=== PATIENT | female | born 1970 | race Caucasian/White ===

== ENCOUNTER 2021-02-13 22:43 | Observation (INO) | payer OTHER, BC, SELFPAY ==
--- NOTE | ~2021-02-13 | CT_ITS ---
EXAMINATION: CT brain wo con EXAM DATE: 02/14/2021 00:48 INDICATION: Syncope. TECHNIQUE: Spiral CT of the head was performed without contrast. Axial, coronal and sagittal images were reviewed. The dose-length product (DLP) for this examination was 605.33 mGy-cm. The exposure w as tailored according to patient size, and iterative reconstruction (ASIR) was used as additional dos e reduction technique. There is no prior study for comparison. FINDINGS: There is no acute intraparenchymal hemorrhage. No evidence of intraparenchymal brain mass lesion. No evidence of acute infarction. There is no mass effect or midline shift. The ventricles are normal in size. There are no extra-axial collections. There are no acute calvarial fractures. T he orbits are unremarkable. Soft tissue is unremarkable. The visualized sinuses and mastoid air boo ls are well aerated. IMPRESSION: 1. Unremarkable head CT examination. Reviewed, dictated and finalized at location A.
--- NOTE | ~2021-02-13 | XR_ITS ---
XR chest 1V portable DATE: 02/13/2021 23:05 INDICATION: Syncope TECHNIQUE: Portable upright AP chest on 02/13/2021 at 2309 hours COMPARISON: 09/05/2020 PA chest FINDINGS: Normal heart size. No hilar or mediastinal enlargement. No pulmonary infiltrate or consolid ation, pleural effusion or pulmonary vascular congestion or pneumothorax. IMPRESSION: No active cardiopulmonary disease Reviewed, dictated and finalized at location A.
[2021-02-13 22:43] VITALS: BP 88/72; PULSE 65; PULSE 72; RESP 16; TEMP 36.8; O2SAT 95
--- NOTE | 2021-02-13 22:45 | ECG_ITS ---
Measurements Intervals [place] Rate: 81 P: 31 TX: 145 QRS: 83 QRSD: 88 T: 62 QT: 370 QTc: 430 Interpretive Statements SINUS RHYTHM INCOMPLETE RIGHT BUNDLE BRANCH BLOCK BORDERLINE T WAVE ABNORMALITY- ANTERIOR LEADS BORDERLINE ECG Electronically Signed On 02-14-2021 8:09:40 CDT by Zurdo New D.O.
[2021-02-13] MEDS: LACTATED RINGERS 1,000 ML 999 ML IV CONT ×2 (23:10→23:45)
[2021-02-13 23:21] LABS: Glucose Point of Care 105 (65-105)
[2021-02-13 23:50] LABS: Basophils Absolute Auto 0.07 K/mm3 (0.00-0.10); Eosinophils Absolute Auto 0.23 K/mm3 (0.02-0.50); Eosinophils Percent Auto 3.4 % (1.0-6.0); Hematocrit 38.6 % (35.0-49.0); Immature Granulocyte Absolute 0.02 K/mm3 (0.00-0.00); Immature Granulocyte Percent A 0.3 % (0.0-0.0); Lymphocytes Absolute Auto 2.21 K/mm3 (1.10-4.50); Lymphocytes Percent Auto 32.5 % (18.0-42.0); Mean Corpuscular HGB Conc 33.7 g/dL (32.0-36.0); Mean Corpuscular Hemoglobin 27.8 pg (27.0-31.0); Mean Corpuscular Volume 82.7 fL (78.0-102.0); Mean Platelet Volume 10.4 fl (9.2-11.8); Monocytes Absolute Auto 0.64 K/mm3 (0.10-0.90); Monocytes Percent Auto 9.4 % (2.0-11.0); Neutrophils Absolute Auto 3.6 K/mm3 (1.7-7.2); Neutrophils Percent Auto 53.4 % (50.0-70.0); Platelet Count Result 235 K/mm3 (150-420); Red Blood Count 4.67 M/mm3 (4.20-5.40); Red Cell Distribution Width 12.2 % (11.6-14.4); White Blood Count 6.8 K/mm3 (4.8-10.8)
[2021-02-14] VITALS (12 sets, daily range): BP systolic 94–110; BP diastolic 42–67; PULSE 65–82; RESP 18–20; TEMP 35.8–36.9; O2SAT 94–98; BMI 32.8
[2021-02-14 00:14] LABS: BNP < 5.0 pg/mL (0-100)
[2021-02-14 00:17] LABS: Alanine Aminotransferase 22 U/L (14-59); Albumin Level 3.1 g/dL (3.4-5.0); Alkaline Phosphatase 58 U/L (46-116); Anion Gap 7 mmol/L (8-16); Aspartate Amino Transferase 13 U/L (15-37); Bilirubin,Total 0.4 mg/dL (0.00-1.00); Blood Urea Nitrogen 15 mg/dL (7-18); Calcium 9.2 mg/dL (8.5-10.1); Carbon Dioxide 30 mmol/L (21-32); Chloride 101 mmol/L (98-108); Estimated CRCL calculation 52 ml/min; Estimated Glomerular Filt Rate 54; Glucose 107 mg/dL (70-99); Osmolality Calculated 286 mOsm/kg (285-295); Potassium 3.3 mmol/L (3.5-5.1); Sodium 138 mmol/L (136-145); Total Protein 6.2 g/dL (6.4-8.2)
[2021-02-14 00:18] LABS: Thyroid Stimulating Hormone 3.56 uIU/mL (0.36-3.74); Troponin I < 4.0 ng/L (0.00-60.4)
[2021-02-14 00:19] LABS: Ethanol 4 mg/dL (0-6)
[2021-02-14] MEDS: POTASSIUM BICARBONATE 25 MEQ TABEF 50 MEQ PO (00:23)
[2021-02-14] MEDS: SODIUM CHLORIDE 0.9% IV 1,000 ML 150 ML IV CONT ×3 (00:23→13:40)
--- NOTE | 2021-02-14 00:34 | ED.SYNCOPE ---
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 Just after standing she had a brief syncopal episode, falling to the floor, but apparently without injury. She appears somewhat weak now. She reports she has had frequent presyncopal episodes when standing up lately. MD complaint: loss of consciousness and felt faint -: second(s) Prodromal symptoms: lightheaded Witnessed: No Context: standing up Injuries sustained associated with event: none Current symptoms: none History: other (previous presyncopal episodes.) Related Data Home Medications Medication Instructions Recorded Confirmed atorvastatin 20 mg PO DAILY 02/13/21 02/13/21 doxycycline monohydrate 100 mg PO DAILY 02/13/21 02/13/21 lamotrigine 100 mg PO DAILY 02/13/21 02/13/21 losartan-hydrochlorothiazide 1 tablet PO DAILY 02/13/21 02/13/21 metoprolol succinate 25 mg PO DAILY 02/13/21 02/13/21 omeprazole 40 mg PO DAILY 02/13/21 02/13/21 oxybutynin chloride 5 mg PO DAILY 02/13/21 02/13/21 potassium chloride 10 meq PO DAILY 02/13/21 02/13/21 quetiapine 100 mg PO DAILY 02/13/21 02/13/21 spironolactone 50 mg PO DAILY 02/13/21 02/13/21 trazodone 100 mg PO HS 02/13/21 02/13/21 venlafaxine 150 mg PO DAILY 02/13/21 02/13/21 Allergies Allergy/AdvReac Type Severity Reaction Status Date / Time No Known Allergies Allergy Verified 09/05/20 15:30 Review of Systems Constitutional: Constitutional: Reports no additional constitutional complaints Eyes: Eyes: Reports no additional eye complaints ENT: Reports system reviewed and no additional complaints, except as documented Comments: No vertigo Cardiovascular: Cardiovascular: Reports no additional cardiovascular complaints Respiratory: Respiratory: Reports no additional respiratory complaints Gastrointestinal: Gastrointestinal: Reports no additional gastrointestinal complaints Genitourinary: Genitourinary: Reports no additional female genitourinary complaints Musculoskeletal: Musculoskeletal: Reports no additional musculoskeletal complaints Integumentary/Breasts: Skin/Breast: Reports system reviewed and no additional complaints, except as docu Neurologic: Reports system reviewed and no additional complaints, except as documented Psychiatric: Psychiatric: Reports no additional psychiatric complaints Endocrine: Endocrine: Reports no additional endocrine complaints Hematologic/Lymphatic: Hematologic/Lymphatic: Reports no additional hematologic/lymphatic complaints Allergic/Immunologic: Allergic/Immunologic: Reports no additional allergic/immunologic complaints [facility] Past Medical History Medical History (Updated 02/14/21 @ 05:53 by Kvng Carlos MD) Depression GERD (gastroesophageal reflux disease) Hypertension Surgical History Surgical History (Updated 02/14/21 @ 05:56 by Kvng Carlos MD) H/O hemorrhoidectomy History of carpal tunnel surgery History of ear surgery History of tonsillectomy Family History Family History (Updated 02/14/21 @ 05:56 by Kvng Carlos MD) Mother Cerebrovascular accident Hypertension Hyperlipidemia Social History Social History (Updated 02/14/21 @ 05:58 by Kvng Carlos MD) Smoking status: Current every day smoker Tobacco type: cigarettes Alcohol use details: rare, minimal use Substance use type: does not use Gender identity (if verbalized by the patient): Female Spiritual care concerns: No Exam Const: General: no acute distress Orientation/consciousness: patient oriented x3 HENMT: Head: normal to inspection Ears: external ears normal and TM's normal bilaterally General nose exam: Normal external nose present and Normal nares present Face and sinus: normal facial exam Mouth: Yes Normal oral and palatal mucosa present Throat: posterior orop
[2021-02-14 00:57] LABS: Add Urine Microscopic? NO; Appearance Urine Clear (Clear); Bilirubin Urine Negative (Negative); Blood Urine Negative (Negative); Color Urine Yellow (Yellow); Glucose Urine UA Negative (Negative); Ketones Urine Negative (Negative); Leukocyte Esterase Ur Negative (Negative); Nitrate Urine Negative (Negative); Protein Urine Negative (Negative); Specific Grav Ur 1.015 (1.010-1.020); Urobilinogen Urine 0.2 mg/dL (0.2-1.0)
--- NOTE | 2021-02-14 01:00 | PC.NURSE ---
pt resting per cot, lights out for comfort.
[2021-02-14 01:04] LABS: Amphetamine Screen Urine Negative (Negative); Barbiturate Screen Urine Negative (Negative); Benzodiazepines Screen Urine Negative (Negative); Cannabinoid Screen Urine Negative (Negative); Cocaine Screen Urine Negative (Negative); Methadone Screen Urine Negative (Negative); Opiate Screen Urine Negative (Negative); Phencyclidine Screen Urine Negative (Negative)
--- NOTE | 2021-02-14 01:36 | ECHO_ITS ---
Patient Info Name: Marii Aguilar Age: 50 years : 1970 Gender: Female Ht: 61 in Wt: 169 lbs BSA: 1.85 m2 HR: 66 bpm BP: 99 / 50 mmHg Heart Rhythm: Sinus Rhythm Technical Quality: Good Exam Date: 02/14/2021 9:17 AM Exam Location: [facility] Exam Room: 227 Patient Status: Inpatient Admit Date: 02/14/2021 Staff Ordering Physician: Kvng Carlos MD Plastic Surgery Specialist: Claudette Morales RDCS Attending Provider: Kvng Carlos MD Referring Physician: Seun DOYLE Exam Type: CA echo doppler color flow Study Info Indications R55 - Syncope and collapse Complete two-dimensional, color flow and Doppler transthoracic echocardiogram is performed. Strain analysis performed. History/Risk Factors Hypertension: Yes Dyslipidemia: No Congenital Heart Disease (CHD): No Peripheral Arterial Disease (PAD): No Myocardial Infarction (OH): No Chronic Lung Disease: No Obesity: Yes Renal Disease: No Coronary Artery Disease (CAD) No Congestive Heart Failure (CHF): No Cardiomyopathy/LV Systolic Dysfunction: No Date of Last Tobacco Use: 02/13/2021 Diabetes Mellitus: No COPD: No Tobacco Use: Current - Every Day If Any Current, Tobacco Type: Cigarettes Cerebrovascular Disease: No DVT Treatment: Heparin Deep Vein Thrombosis (DVT): None Dialysis: None Frailty Scale (CSHA): 2: Well Cardiac Arrest: No Summary 1. Complete two-dimensional, color flow and Doppler transthoracic echocardiogram is performed. 2. Left ventricular chamber dimension is normal. 3. Left ventricular systolic function is hyperdynamic, estimated at >70%. 4. The left ventricular diastolic function is grade II diastolic dysfunction. 5. E/e' 10 is mildly elevated. 6. Global longitudinal strain is normal at -18.3%. 7. Left atrial chamber dimension is mildly enlarged. 8. There is trace tricuspid valve regurgitation. 9. No pulmonary hypertension, estimated pulmonary arterial systolic pressure is 33 mmHg. Recommendations * Smoking cessation counseling is recommended for this patient. Left Ventricle E/e' 10 is mildly elevated. Global longitudinal strain is normal at -18.3%. Left ventricular chamber dimension is normal. Left ventricular systolic function is hyperdynamic, estimated at >70%. The left ventricular diastolic function is grade II diastolic dysfunction. Right Ventricle Right ventricular chamber dimension is normal. Right ventricular systolic function is normal. Left Atria Left atrial chamber dimension is mildly enlarged. Right Atria Right atrial chamber dimension is normal. Aortic Valve The aortic valve is trileaflet. There is no aortic valve stenosis. There is no aortic valve regurgitation. Pulmonic Valve There is no pulmonic regurgitation. Mitral Valve There is no mitral valve stenosis. There is no mitral valve regurgitation. Tricuspid Valve There is trace tricuspid valve regurgitation. No pulmonary hypertension, estimated pulmonary arterial systolic pressure is 33 mmHg. Pericardium/Pleural There is no pericardial effusion. Inferior Vena Cava Normal inferior vena cava with >50% collapse upon inspiration consistent with normal right atrial pressure, 5 mmHg. Aorta The aortic root size at the sinus of Valsalva is normal. Left Ventricular Outflow Tract Name
[2021-02-14 01:45] LABS: Magnesium 1.5 mg/dL (1.8-2.4)
--- NOTE | 2021-02-14 02:36 | PC.NURSE ---
Patient admitted to room 227 per wheelchair from the ER, is alert andn oriented x 3, no c/o pain , IV fluids per orders, eating soup in her bed, oriented to room and call jackson.
[2021-02-14 07:47] LABS: Anion Gap 6 mmol/L (8-16); Blood Urea Nitrogen 13 mg/dL (7-18); Calcium 8.5 mg/dL (8.5-10.1); Carbon Dioxide 25 mmol/L (21-32); Chloride 105 mmol/L (98-108); Estimated CRCL calculation 68 ml/min; Estimated Glomerular Filt Rate > 60; Glucose 100 mg/dL (70-99); Osmolality Calculated 282 mOsm/kg (285-295); Potassium 3.9 mmol/L (3.5-5.1); Sodium 136 mmol/L (136-145); Troponin I < 4.0 ng/L (0.00-60.4)
--- NOTE | 2021-02-14 08:50 | PC.NURSE ---
Supine 99/50; Sitting 112/58; Standing 99/35
[2021-02-14] MEDS: PANTOPRAZOLE 40 MG TABLET PO (10:11)
[2021-02-14] MEDS: ENOXAPARIN 40 MG/0.4 ML SYRINGE SUB-Q (10:11)
[2021-02-14] MEDS: DOXYCYCLINE HYCLATE 100 MG TABLET PO (10:11)
[2021-02-14] MEDS: VENLAFAXINE HCL XR 75 MG CAP.ER.24H 150 MG PO (10:12)
[2021-02-14] MEDS: hydroCHLOROthiazide 12.5 MG CAPSULE PO (10:12)
[2021-02-14] MEDS: ATORVASTATIN 10 MG TABLET 20 MG PO (10:12)
[2021-02-14] MEDS: LOSARTAN POTASSIUM 50 MG TABLET PO (10:12)
[2021-02-14] MEDS: POTASSIUM CHLORIDE 10 MEQ TABLET PO (10:12)
[2021-02-14] MEDS: QUEtiapine FUMARATE 100 MG TABLET PO (10:12)
[2021-02-14] MEDS: OXYBUTYNIN CHLORIDE 5 MG TABLET PO (10:12)
[2021-02-14] MEDS: lamoTRIgine 100 MG TABLET PO (10:13)
--- NOTE | 2021-02-14 13:55 | PM.IMHP ---
H&P: HPI History of Present Illness Date/Time: 02/14/21 13:55 Pt is in observation to monitor her for syncopal episode. 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 When she stood up she became light headed and passed out onto the floor without injury. Pt states that she has noticed a little dizziness lately when standing from a sitting or squatting position lately. Pt states that she has been on and off of Seroquel lately. She just restarted this about a week ago or so at the same does she was previously taking and since then she has noticed the dizzy spells. Pt states that she does not think she needs to be on this medication and after talking she seems interested in a second opinion. <FERNANDEZ Keating - Last Filed: 02/14/21 14:20> Chief Complaint: Syncope <FERNANDEZ Keating - Last Filed: 02/14/21 14:20> Review of Systems Constitutional: Constitutional: Reports no additional constitutional complaints, Denies chills, Denies fatigue, Denies fever(s) and Denies headache(s) <FERNANDEZ Keating - Last Filed: 02/14/21 14:20> Eyes: Eyes: Reports no additional eye complaints, Denies change in vision, Denies diplopia, Denies eye discharge and Denies irritation <FERNANDEZ Keating - Last Filed: 02/14/21 14:20> ENT: Reports system reviewed and no additional complaints, except as documented, Reports dizziness (as noted in the HPI), Denies otalgia, Denies headache(s), Denies sinus pain and Denies sinus pressure <FERNANDEZ Keating - Last Filed: 02/14/21 14:20> Cardiovascular: Cardiovascular: Reports no additional cardiovascular complaints, Denies chest pain and Denies chest pain at rest <FERNANDEZ Keating - Last Filed: 02/14/21 14:20> Respiratory: Respiratory: Reports no additional respiratory complaints, Denies cough, Denies dyspnea and Denies dyspnea on exertion <FERNANDEZ Keating - Last Filed: 02/14/21 14:20> Gastrointestinal: Gastrointestinal: Reports no additional gastrointestinal complaints <FERNANDEZ Keating - Last Filed: 02/14/21 14:20> Genitourinary: Genitourinary: Reports no additional female genitourinary complaints <FERNANDEZ Keating - Last Filed: 02/14/21 14:20> Musculoskeletal: Musculoskeletal: Reports no additional musculoskeletal complaints <FERNANDEZ Keating - Last Filed: 02/14/21 14:20> Integumentary/Breasts: Skin/Breast: Reports system reviewed and no additional complaints, except as docu <FERNANDEZ Keating - Last Filed: 02/14/21 14:20> Comments: States she was covered with ticks recently 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 <FERNANDEZ Keating - Last Filed: 02/14/21 14:20> Neurologic: Reports system reviewed and no additional complaints, except as documented, Reports dizziness and Reports syncope <FERNANDEZ Keating - Last Filed: 02/14/21 14:20> Psychiatric: Psychiatric: Reports no additional psychiatric complaints <FERNANDEZ Keating - Last Filed: 02/14/21 14:20> Comments: Pt states she was started on Seroquel d/t manic episodes <FERNANDEZ Keating - Last Filed: 02/14/21 14:20> [facility] Past Medical History Medical History: Medical History (Updated 02/14/21 @ 14:08 by FERNANDEZ Keating) Depression GERD (gastroesophageal reflux disease) Hypertension <FERNANDEZ Keating - Last Filed: 02/14/21 14:20> Surgical History Surgical History: Surgical History H/O hemorrhoidectomy History of carpal tunnel surgery History of ear surgery History of tonsillectomy <FERNANDEZ Keating - Last Filed: 02/14/21 14:20> Family History Family History: Family History Mother
[2021-02-14] MEDS: MAGNESIUM SULF 2 GM/WATER 50ML 2 GM/50 ML BAG IVPB (14:03)
[2021-02-14] MEDS: traZODone HCL 50 MG TABLET 100 MG PO (21:24)
[2021-02-15 00:52] VITALS: BP 89/38; PULSE 58; RESP 18; TEMP 36.4; O2SAT 95
[2021-02-15] MEDS: SODIUM CHLORIDE 0.9% IV 1,000 ML 150 ML IV CONT (01:35)
[2021-02-15 04:00] VITALS: BP 99/51; PULSE 66; RESP 18; TEMP 35.7; O2SAT 96
[2021-02-15 05:09] LABS: Hematocrit 37.1 % (35.0-49.0); Hemoglobin 12.4 g/dL (12.0-15.0); Mean Corpuscular HGB Conc 33.4 g/dL (32.0-36.0); Mean Corpuscular Hemoglobin 28.4 pg (27.0-31.0); Mean Corpuscular Volume 84.9 fL (78.0-102.0); Mean Platelet Volume 10.7 fl (9.2-11.8); Platelet Count Result 203 K/mm3 (150-420); Red Blood Count 4.37 M/mm3 (4.20-5.40); Red Cell Distribution Width 12.3 % (11.6-14.4); White Blood Count 4.8 K/mm3 (4.8-10.8)
[2021-02-15 05:19] LABS: Anion Gap 6 mmol/L (8-16); Blood Urea Nitrogen 11 mg/dL (7-18); Calcium 8.7 mg/dL (8.5-10.1); Carbon Dioxide 28 mmol/L (21-32); Chloride 107 mmol/L (98-108); Estimated CRCL calculation 70 ml/min; Estimated Glomerular Filt Rate > 60; Glucose 83 mg/dL (70-99); Osmolality Calculated 290 mOsm/kg (285-295); Potassium 3.7 mmol/L (3.5-5.1); Sodium 141 mmol/L (136-145)
[2021-02-15 08:00] VITALS: BP 104/75; PULSE 73; PULSE 74; RESP 18; TEMP 36.4; O2SAT 98
[2021-02-15] MEDS: POTASSIUM CHLORIDE 10 MEQ TABLET PO (09:40)
[2021-02-15] MEDS: VENLAFAXINE HCL XR 75 MG CAP.ER.24H 150 MG PO (09:40)
[2021-02-15] MEDS: PANTOPRAZOLE 40 MG TABLET PO (09:41)
[2021-02-15] MEDS: lamoTRIgine 100 MG TABLET PO (09:41)
[2021-02-15] MEDS: DOXYCYCLINE HYCLATE 100 MG TABLET PO (09:41)
[2021-02-15] MEDS: QUEtiapine FUMARATE 100 MG TABLET PO (09:41)
[2021-02-15] MEDS: LOSARTAN POTASSIUM 50 MG TABLET PO (09:41)
[2021-02-15] MEDS: ATORVASTATIN 10 MG TABLET 20 MG PO (09:41)
[2021-02-15] MEDS: hydroCHLOROthiazide 12.5 MG CAPSULE PO (09:41)
[2021-02-15] MEDS: OXYBUTYNIN CHLORIDE 5 MG TABLET PO (09:41)
--- NOTE | 2021-02-15 09:42 | PM.DS ---
DS: Admitting Diagnosis Admitting Diagnosis Admitting Diagnosis: Syncope DS: Discharge Diagnosis Discharge Diagnosis (1) Vasovagal syncope: Code(s): R55 - Syncope and collapse Status: Acute Assessment and Plan: 02/14/2021 Possibly related to restarting Seroquel at her previous dose without starting over from low dose vs hypovolemia vs combination of Losartan/HCTZ and Metoprolol and Trazodone, or another cause; BP has been soft with systolic in the 90s and HR in the 60s, held metoprolol this AM and DC'ed this medication and will monitor BP and orthostatic VS throughout the day and tomorrow and see how Pt does in the AM. 02/15/2021 With some changes to the Pt's BP medications her BP has improved and she is no longer having dizziness with standing, her orthostatics have been good: Lying 104/75 HR 74, Sitting 106/56 HR 76, Standing 115/88 HR 80 and asymptomatic. Pt to stop taking Metoprolol, continue Losartan/HCTZ but at the decreased dose and stop spironolactone. F/U with PCP in a week. (2) Depression: Code(s): F32.9 - Major depressive disorder, single episode, unspecified Status: Inactive Assessment and Plan: 02/14/2021 Continue with Seroquel and Venlafaxine (3) GERD (gastroesophageal reflux disease): Code(s): K21.9 - Gastro-esophageal reflux disease without esophagitis Status: Inactive Assessment and Plan: 02/14/2021 Continue Omeprazole (4) Hypertension: Code(s): I10 - Essential (primary) hypertension Status: Inactive Assessment and Plan: 02/14/2021 BP has been on the soft side as noted above, currently holding metoprolol and evaluating for Orthostatic issues, will consider decreasing BP medication further and/or addition of Midodrine 02/15/2021 BP improved as noted above, Midodrine was not added. DS: Summary Hospital Course Hospital Course: Pt has not had any syncopal episodes during her hospitalization, she now has no dizziness with standing, orthostatics WNL, medication changes made Time Spent with Patient Time attestation: Total time spent providing and/or coordinating discharge services: < 30 minutes Exam Const: General: cooperative, comfortable, no acute distress, alert and awake Nutritional Appearance: overweight Orientation/consciousness: oriented to person, oriented to place and oriented to time HENMT: Head: normal to inspection, normocephalic and atraumatic Ears: hearing grossly normal bilaterally Eyes: General: appearance normal, both eyes and all related structures Eyelids: eyelids normal Conjunctivae: conjunctivae normal Sclera: sclerae normal Cornea: corneas normal Neck: Neck: normal visual inspection and no JVD Resp: Effort & Inspection: normal respiratory effort Auscultation: clear to auscultation bilaterally Cardio: Rate: regular rate Rhythm: regular rhythm Heart sounds: S1 normal heart sound present and S2 normal heart sound present GI: Auscultation: normal bowel sounds Skin: General skin exam: normal color and no jaundice Rashes: no rashes Wounds: no wounds Neuro: General: oriented to person, oriented to place and oriented to time Cranial nerves: Yes CN's II-XII intact bilaterally (grossly intact) Cognition (Neuro): normal cognition Speech: normal speech Gait exam (Neuro): Normal gait present Motor exam (neuro): 5/5 motor strength present throughout Extrem: General: normal to inspection and no pedal edema Psych: Appearance: grossly normal Mental Status: mental status grossly normal Speech and movement: Normal speech and movement present Affect: normal affect Attitude: cooperative Thought process: Normal thought process present DS: Data Data Completed and Pending Labs on day of discharge: Labs from last 24 hours 02/15/21 02/15/21 02/15/21 04:45 04:45 04:45 WBC 4.8 RBC 4.37 Hgb 12.4 Hct 37.1 MCV 84.9 MCH 28.4 MCHC 33.4 RDW 12.3 Plt Count 203 MPV 10.7 Sodium 141 Potassium
--- NOTE | 2021-02-15 10:35 | PC.NURSE ---
Discharge instructions reviewed with patient, she verbalizes understanding. Return to work notice and printed prescription included in discharge packet. Patient ambulated off floor and left per own vehicle.
--- NOTE | 2021-02-16 15:15 | PC.NURSE ---
Pt states she received and understood her discharge instructions. Pt also states they did a great job .
== END 2021-02-15 10:35 | disposition home or self-care (01) ==
LOC: CHSED 02-14 01:43 → CHS2ND 02-14 07:16
PROVIDERS: Nurse Practitioner Family; Admitting Provider Emergency Medicine; Emergency Provider Emergency Medicine; Visit Provider Emergency Medicine
DX: R55 Syncope and collapse (principal); I10 Essential (primary) hypertension; K21.9 Gastro-esophageal reflux disease without esophagitis; F32.9 Major depressive disorder, single episode, unspecified; F17.210 Nicotine dependence, cigarettes, uncomplicated
CPT/HCPCS: 36415; 70450; 71045; 80048; 80053; 80307; 81003; 82948; 83735; 83880; 84443; 84484; 85025; 85027; 93005; 93306; 96360; 96361; 96365; 96372; 99285; A9270; G0378; J1650; J3475; J7030; J7120

== ENCOUNTER 2021-04-17 08:44 | Emergency (ER) | payer BC, SELFPAY ==
--- NOTE | ~2021-04-17 | XR_ITS ---
EXAMINATION: XR hand RT min 3V DATE: 04/17/2021 10:45 INDICATION: Right hand pain in the region of the first carpal metacarpal joint TECHNIQUE: Posteroanterior, oblique and lateral views of the right hand were obtained. COMPARISON: None. FINDINGS: Bone alignment is normal. No fracture. Minimal to mild osteoarthritis at the triscaphe and first carp ometacarpal joint. Soft tissues are unremarkable. IMPRESSION: 1. Minimal to mild osteoarthritis at the triscaphe and first carpal metacarpal joints. Reviewed, dictated and finalized at location A.
--- NOTE | 2021-04-17 09:13 | ED.UPPEXIN ---
HPI - Extremity Injury (Upper) General Chief Complaint: Extremity Injury, Upper Stated Complaint: HAND PAIN Time Seen by Provider: 04/17/21 09:13 Source: patient Mode of arrival: ambulatory Limitations: no limitations History of Present Illness HPI narrative: 50-year-old woman comes in today complaining of pain at the base of her right thumb that started yesterday. Patient states that she has had no injuries that she can recall. She denies prior similar symptoms and has no history of arthritis. She states that she has had no morning joint stiffness, erythema, and only minimal swelling. Patient states that she had a bout of diarrhea this morning and a fever of 100.5. She denies nausea, vomiting, sore throat, nasal congestion, cough, shortness of breath. She denies any sick exposures. 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 MD complaint: injury to: right and hand Onset (ago): day(s) (1) Other Extremity Injury: Right: fingers (Thumb base) Other injuries: none Handedness: right Severity: severe Relieving factors: none Exacerbating factors: none Associated symptoms: denies other symptoms Related Data Home Medications Medication Instructions Recorded Confirmed atorvastatin 20 mg PO DAILY 02/13/21 04/17/21 doxycycline monohydrate 100 mg PO DAILY 02/13/21 04/17/21 lamotrigine 100 mg PO DAILY 02/13/21 04/17/21 omeprazole 40 mg PO DAILY 02/13/21 04/17/21 oxybutynin chloride 5 mg PO DAILY 02/13/21 04/17/21 potassium chloride 10 meq PO DAILY 02/13/21 04/17/21 quetiapine 100 mg PO DAILY 02/13/21 04/17/21 trazodone 100 mg PO HS 02/13/21 04/17/21 venlafaxine 150 mg PO DAILY 02/13/21 04/17/21 Allergies Allergy/AdvReac Type Severity Reaction Status Date / Time cephalexin [From Keflex] AdvReac Rash Verified 04/17/21 09:41 clarithromycin [From Biaxin] AdvReac Rash Verified 04/17/21 09:41 Review of Systems Constitutional: Constitutional: Denies chills and Reports fever(s) ENT: Denies nasal congestion and Denies sore throat Cardiovascular: Cardiovascular: Denies chest pain and Denies radiating jaw, neck or arm pain Respiratory: Respiratory: Denies cough and Denies dyspnea Gastrointestinal: Gastrointestinal: Reports abdominal pain, Reports diarrhea, Denies nausea and Denies vomiting Genitourinary: Genitourinary: Denies nocturia and Denies dysuria Musculoskeletal: Musculoskeletal: Reports back pain (Ongoing), Reports arthralgias and Reports joint swelling Integumentary/Breasts: Skin/Breast: Denies pruritus, Denies erythema and Denies rash Neurologic: Denies vertigo, Denies dizziness, Denies syncope, Denies focal weakness and Denies numbness Hematologic/Lymphatic: Hematologic/Lymphatic: Denies easy bleeding and Denies easy bruising Allergic/Immunologic: Allergic/Immunologic: Denies lip swelling and Denies throat swelling PMFSH Past Medical History Medical History Depression GERD (gastroesophageal reflux disease) Hypertension Surgical History Surgical History H/O hemorrhoidectomy History of carpal tunnel surgery History of ear surgery History of tonsillectomy Family History Family History Mother Cerebrovascular accident Hypertension Hyperlipidemia Social History Social History Smoking status: Current every day smoker Tobacco type: cigarettes Substance use type: does not use Gender identity (if verbalized by the patient): Female Spiritual care concerns: No Exam Const: General: no acute distress and alert; No healthy appearing Orientation/consciousness: patient oriented x3 Limitations: No no limitations Eyes: Conjunctivae: conjunctivae normal Pupils: Equal, round and reactive pupils present EOM: EOMs intact bilaterally Resp: Effort & Inspection: normal respiratory effort a
[2021-04-17 09:28] VITALS: BP 135/89; PULSE 88; RESP 20; TEMP 37; O2SAT 96
[2021-04-17 10:20] LABS: SARS-CoV-2 RNA PCR Negative (Negative)
[2021-04-17 11:30] VITALS: PULSE 84; RESP 20; O2SAT 97
== END 2021-04-17 11:35 | disposition home or self-care (01) ==
PROVIDERS: Emergency Provider Emergency Medicine; PCP Family Medicine
DX: S63.8X1A Sprain of other part of right wrist and hand, initial encounter (principal); Z20.822 Contact with and (suspected) exposure to COVID-19
CPT/HCPCS: 29125; 73130; 99283; C9803; L3908; U0003; U0005

== ENCOUNTER 2021-12-10 21:22 | Emergency (ER) | payer BC, SELFPAY ==
--- NOTE | 2021-12-10 21:24 | ED.URI ---
HPI - URI/Sore Throat General Chief Complaint: Upper Respiratory Infection Stated Complaint: covid positive Time Seen by Provider: 12/10/21 21:23 Source: patient and RN notes reviewed Mode of arrival: ambulatory Limitations: no limitations History of Present Illness MD elicited complaint: cough and sore throat Onset (ago): day(s) (2) Consistency: constant Severity: moderate Able to tolerate fluids by mouth: Yes Exacerbating factors: other (coughing) Relieving factors: nothing Associated symptoms: fever (102.5), myalgias, headache, sore throat and cough Related Data Home Medications Medication Instructions Recorded Confirmed atorvastatin 20 mg PO DAILY 02/13/21 04/17/21 doxycycline monohydrate 100 mg PO DAILY 02/13/21 04/17/21 lamotrigine 100 mg PO DAILY 02/13/21 04/17/21 omeprazole 40 mg PO DAILY 02/13/21 04/17/21 oxybutynin chloride 5 mg PO DAILY 02/13/21 04/17/21 potassium chloride 10 meq PO DAILY 02/13/21 04/17/21 quetiapine 100 mg PO DAILY 02/13/21 04/17/21 trazodone 100 mg PO HS 02/13/21 04/17/21 venlafaxine 150 mg PO DAILY 02/13/21 04/17/21 Allergies Allergy/AdvReac Type Severity Reaction Status Date / Time cephalexin [From Keflex] AdvReac Rash Verified 04/17/21 09:41 clarithromycin [From Biaxin] AdvReac Rash Verified 04/17/21 09:41 Review of Systems Review of Systems: All systems reviewed & are unremarkable except as noted in HPI and below PMFSH Past Medical History Medical History Depression GERD (gastroesophageal reflux disease) Hyperlipidemia Hypertension Surgical History Surgical History H/O hemorrhoidectomy History of carpal tunnel surgery History of ear surgery History of tonsillectomy Family History Family History Mother Cerebrovascular accident Hypertension Hyperlipidemia Social History Social History Smoking status: Current every day smoker Tobacco type: cigarettes Alcohol use details: rare, minimal use Substance use type: does not use Gender identity (if verbalized by the patient): Female Spiritual care concerns: No Exam Const: General: healthy appearing, no acute distress and alert Nutritional Appearance: well nourished Orientation/consciousness: patient oriented x3 HENMT: Head: normal to inspection Ears: external ears normal Eyes: Conjunctivae: conjunctivae normal Pupils: Equal, round and reactive pupils present EOM: EOMs intact bilaterally Neck: Neck: normal visual inspection Resp: Effort & Inspection: normal respiratory effort Auscultation: clear to auscultation bilaterally Cardio: Rate: regular rate Rhythm: regular rhythm GI: GI Palp: Yes Soft to palpation and No Tenderness to palpation present (GI) Auscultation: normal bowel sounds Back/Spine/Pelvis: Cervical Spine: cervical ROM normal Thoracic/Lumbar Spine: thoraco-lumbar ROM normal Skin: General skin exam: normal color Rashes: no rashes Neuro: General: patient oriented x3, moves all extremities, no meningeal signs, no focal motor deficits and CN's II-XI intact bilaterally Speech: normal speech Gait exam (Neuro): Normal gait present Extrem: General: normal to inspection and no clubbing, cyanosis or edema Psych: Appearance: grossly normal and well kempt Mental Status: mental status grossly normal Affect: normal affect Attitude: cooperative Thought content: Yes Normal thought content present Course Vital Signs Vital signs: Vital Signs Temperature 37.3 C 12/10/21 21:25 Pulse Rate 85 12/10/21 21:25 Respiratory Rate 20 12/10/21 21:25 Blood Pressure 135/92 H 12/10/21 21:25 Pulse Oximetry 99 12/10/21 21:25 Temperature 36.6 C 12/10/21 21:47 Pulse Rate 88 12/10/21 21:47 Respiratory Rate 20 12/10/21 21:47 Blood Pressure 130/87 12/10/21 21:47
[2021-12-10 21:25] VITALS: BP 135/92; PULSE 85; RESP 20; TEMP 37.3; O2SAT 99
[2021-12-10 21:47] VITALS: BP 130/87; PULSE 88; RESP 20; TEMP 36.6; O2SAT 99
[2021-12-11 05:45] LABS: SARS-CoV-2 RNA PCR Positive (Negative)
== END 2021-12-10 21:48 | disposition home or self-care (01) ==
PROVIDERS: Emergency Provider Emergency Medicine; PCP Family Medicine
DX: U07.1 COVID-19 (principal)
CPT/HCPCS: 99283; C9803; U0003; U0005

== ENCOUNTER 2022-09-26 11:13 | Outpatient (CLI) | payer OTHER, SELFPAY ==
--- NOTE | ~2022-09-26 | MM_ITS ---
EXAMINATION: MM screening mary BI w bill HISTORY: Screening mammogram TECHNIQUE: Craniocaudal and mediolateral oblique 3-D tomosynthesis images were obtained and synthetic 2-D images were generated. CAD analysis was submitted and interpreted. COMPARISON: No prior mammogram is available for comparison at this institution. BREAST PARENCHYMAL COMPOSITION: The breasts are almost entirely fatty. FINDINGS: Grouped cluster microcalcifications are noted in the lower central left breast at the inner aspect of the lower inner quadrant. Diagnostic left mammogram with magnification views is recommende d, with ultrasound if required. Otherwise there is no evidence of suspicious mass, calcification, or architectural distortion to sugg est malignancy in either breast. There has been no suspicious interval change. IMPRESSION: 1. Cluster grouped microcalcifications, lower inner quadrant left breast 2. Diagnostic left mammogram is recommended, with ultrasound if required BI-RADS Category 0: Incomplete: Needs additional imaging evaluation. Reviewed, dictated and finalized at location [facility]. K SUPERINTENDENT
== END 2022-09-26 11:14 | disposition home or self-care (01) ==
LOC: CHSIMG 11:15
PROVIDERS: PCP Physician Assistant; Visit Provider Physician Assistant
DX: Z12.31 Encounter for screening mammogram for malignant neoplasm of breast (principal)
CPT/HCPCS: 77063; 77067

== ENCOUNTER 2022-10-09 08:51 | Outpatient (CLI) | payer OTHER, SELFPAY ==
--- NOTE | ~2022-10-09 | MMUS_ITS ---
EXAMINATION: MM diagnostic mary LT w bill, US breast LT limited HISTORY: Indeterminate left breast calcifications on screening mammogram TECHNIQUE: Additional 3-D tomosynthesis an magnification images of the left breast were performed and synthetic 2-D images were generated. CAD analysis was submitted and interpreted. High resolution malin ited left breast ultrasound was performed. COMPARISON: 09/26/2022 FINDINGS: MAMMOGRAPHIC FINDINGS: There are grouped fine pleomorphic calcifications in the middle third of the lower breast at the 6:00 location 6 cm from the nipple. There is a questionable associated mass. ULTRASOUND: There is no evidence of focal abnormal solid or cystic mass in the vicinity of the mammographic findi ng in question. IMPRESSION: 1. Indeterminate left breast calcifications. 2. Stereotactic biopsy is recommended. BI-RADS category 4, suspicious findings. Reviewed, dictated and finalized at location [facility]. PROFESSIONAL EDUCATION ASSISTANT IMPRESSION: 1. Indeterminate left breast calcifications. 2. Stereotactic biopsy is recommended. BI-RADS category 4, suspicious findings.
== END 2022-10-09 08:52 | disposition home or self-care (01) ==
LOC: CHSIMG 08:52
PROVIDERS: PCP Physician Assistant; Visit Provider Physician Assistant
DX: R92.8 Other abnormal and inconclusive findings on diagnostic imaging of breast (principal)
CPT/HCPCS: 76642; 77061; 77065; G0279

== ENCOUNTER 2023-01-20 18:17 | Emergency (ER) | payer OTHER, SELFPAY ==
[2023-01-20 18:20] VITALS: BP 133/94; PULSE 92; RESP 18; TEMP 36.6; O2SAT 97
[2023-01-20 18:37] VITALS: BP 133/94; PULSE 92; RESP 18; TEMP 36.6; O2SAT 97
--- NOTE | 2023-01-20 18:37 | ED.GENADULT ---
HPI - General Adult General Chief complaint: Nausea/Vomiting/Diarrhea Stated complaint: nausea/abdominal pain Time Seen by Provider: 01/20/23 18:25 History of Present Illness HPI narrative: The patient is a 52-year-old woman with a history of GERD depression hypertension hyperlipidemia. At 1:00 a.m. this morning, 01/20/2023, the patient started having diarrheal stools, watery in consistency, approximately 10 episodes total since that time. This afternoon, she had nausea followed by approximately 4 episodes of vomiting since 1:00 p.m.. She feels weak tired and fatigued with shakiness of her extremities especially her hands. Did develop epigastric abdominal discomfort with the vomiting episodes which has decreased now. She denies other symptoms, such as fevers or chills, cough, rhinorrhea, nasal congestion, dysuria, hematuria, hematochezia, melena, urgency, frequency. She does have occasional diaphoresis with emesis. These resolved spontaneously Related Data Home Medications Medication Instructions Recorded Confirmed atorvastatin 20 mg tablet 20 mg PO DAILY 02/13/21 01/20/23 lamotrigine 100 mg tablet 100 mg PO DAILY 02/13/21 01/20/23 omeprazole 40 mg capsule,delayed 40 mg PO DAILY 02/13/21 01/20/23 release oxybutynin chloride 5 mg tablet 5 mg PO DAILY 02/13/21 01/20/23 potassium chloride 10 mEq 10 meq PO DAILY 02/13/21 01/20/23 capsule,extended release quetiapine 100 mg tablet 100 mg PO DAILY 02/13/21 01/20/23 trazodone 100 mg tablet 100 mg PO HS 02/13/21 01/20/23 venlafaxine 150 mg 150 mg PO DAILY 02/13/21 01/20/23 capsule,extended release 24 hr spironolactone 25 mg tablet 75 mg PO DAILY 01/20/23 01/20/23 Allergies Allergy/AdvReac Type Severity Reaction Status Date / Time cephalexin [From Keflex] AdvReac Rash Verified 01/20/23 18:41 clarithromycin [From Biaxin] AdvReac Rash Verified 01/20/23 18:41 CEPHALEXIN MONOHYDRATE Allergy Mild Itching Uncoded 01/20/23 18:41 Review of Systems Review of Systems: All systems reviewed & are unremarkable except as noted in HPI and below Constitutional: Constitutional: Reports as per HPI, Reports no additional constitutional complaints, Denies chills, Denies excessive sweating, Reports fatigue, Denies fever(s), Denies headache(s) and Reports weakness Eyes: Eyes: Reports as per HPI, Reports no additional eye complaints, Denies change in vision and Denies photophobia ENT: Reports system reviewed and no additional complaints, except as documented, Reports as per HPI, Denies dysphagia, Denies vertigo, Denies dizziness, Denies headache(s), Denies lip swelling, Denies nasal congestion, Denies sore throat, Denies throat swelling and Denies tongue swelling Cardiovascular: Cardiovascular: Reports as per HPI, Reports no additional cardiovascular complaints, Denies chest pain, Denies syncope, Denies rapid heart rate and Denies dyspnea Respiratory: Respiratory: Reports as per HPI, Reports no additional respiratory complaints, Denies chest congestion, Denies cough, Denies dyspnea and Denies wheezing Gastrointestinal: Gastrointestinal: Reports as per HPI, Reports no additional gastrointestinal complaints, Reports abdominal pain, Denies constipation, Denies dysphagia, Reports diarrhea, Reports nausea and Reports vomiting Genitourinary: Genitourinary: Reports as per HPI, Denies hematuria, Denies urinary frequency, Denies dysuria, Denies urinary incontinence and Denies urinary urgency Musculoskeletal: Musculoskeletal: Reports no additional musculoskeletal complaints, Denies back pain, Reports myalgias, Denies arthralgias, Denies joint swelling and Denies numbness Integumentary/Breasts: Skin/Breast: Reports system reviewed and no additional complaints, except as docu, Denies pruritus, Denies erythema, Denies rash and Denies skin ulcer Neurologic: Reports system reviewed and no additional complaints, except as documented, Reports as per HPI, Denies confusion, Denies vertigo, Denies dizziness, Denies syn
--- NOTE | 2023-01-20 18:38 | ECG_ITS ---
Measurements Intervals [place] Rate: 83 P: 12 [place]: 146 QRS: 71 QRSD: 85 T: 64 QT: 370 QTc: 436 Interpretive Statements SINUS RHYTHM LOW QRS VOLTAGE IN PRECORDIAL LEADS BORDERLINE T WAVE ABNORMALITY- ANTERIOR LEADS BORDERLINE ECG COMPARED TO ECG 02/13/2021 22:49:46 NO SIGNIFICANT CHANGES Electronically Signed On 01-20-2023 21:40:02 CDT by Zurdo New D.O.
[2023-01-20] MEDS: SODIUM CHLORIDE 0.9% IV 1,000 ML 999 ML IV CONT ×2 (18:57)
[2023-01-20] MEDS: ONDANSETRON INJ 4 MG/2 ML VIAL IV PUSH (18:58)
[2023-01-20] MEDS: KETOROLAC 30 MG/ML VIAL (*BKC) IV PUSH (18:58)
[2023-01-20 19:00] LABS: Hematocrit 42.7 % (35.0-49.0); Hemoglobin 14.5 g/dL (12.0-15.0); Mean Corpuscular Hemoglobin 27.6 pg (27.0-31.0); Mean Corpuscular Volume 81.3 fL (78.0-102.0); Mean Platelet Volume 10.3 fl (9.2-11.8); Platelet Count Result 295 K/mm3 (150-420); Red Blood Count 5.25 M/mm3 (4.20-5.40); Red Cell Distribution Width 12.3 % (11.6-14.4)
[2023-01-20 19:04] LABS: White Blood Count 20.4 K/mm3 (4.8-10.8)
[2023-01-20 19:16] LABS: Alanine Aminotransferase 44 U/L (14-59); Albumin Level 3.9 g/dL (3.4-5.0); Alkaline Phosphatase 93 U/L (46-116); Amylase 39 U/L (25-115); Anion Gap 13 mmol/L (8-16); Aspartate Amino Transferase 22 U/L (15-37); Bilirubin,Total 0.4 mg/dL (0.00-1.00); Blood Urea Nitrogen 15 mg/dL (7-18); Carbon Dioxide 25 mmol/L (21-32); Chloride 104 mmol/L (98-108); Estimated CRCL calculation 74 ml/min; Estimated Glomerular Filt Rate > 60; Glucose 142 mg/dL (70-99); Lipase 60 U/L (16-77); Magnesium 1.5 mg/dL (1.8-2.4); Osmolality Calculated 296 mOsm/kg (285-295); Potassium 4.2 mmol/L (3.5-5.1); Sodium 142 mmol/L (136-145); Total Protein 7.9 g/dL (6.4-8.2); Troponin I 5.4 ng/L (0.00-60.4)
[2023-01-20 19:17] LABS: Lactic Acid Reflex 2.2 mmol/L (0.4-2.0)
[2023-01-20 19:18] LABS: Band Neutrophils Percent 8 % (0-6); Basophils Percent Manual 0 % (0-1); Eosinophils Percent Manual 1 % (1-6); Lymphocytes Absolute Manual 1.63 K/mm3 (1.1-4.5); Lymphocytes Percent Manual 8 % (18-44); Monocytes Absolute Manual 0.61 K/mm3 (0.1-0.90); Monocytes Percent Manual 3 % (3-9); Neutrophils Absolute Manual 17.95 K/mm3 (1.7-7.2); Neutrophils Percent Manual 80 % (46-73); Platelet Estimate Adequate (Adequate); Total Cells Counted 100
[2023-01-20 20:17] LABS: Add Urine Microscopic? NO; Appearance Urine Clear (Clear); Bilirubin Urine Negative (Negative); Blood Urine Negative (Negative); Color Urine Light Yellow (Yellow); Glucose Urine UA Negative (Negative); Ketones Urine Negative (Negative); Leukocyte Esterase Ur Negative LEU/UL (Negative); Nitrate Urine Negative (Negative); Protein Urine Negative (Negative); Urobilinogen Urine 0.2 mg/dL (0.2-1.0)
[2023-01-20] MEDS: MAGNESIUM SULF 2 GM/WATER 50ML 2 GM/50 ML BAG IVPB (20:24)
[2023-01-20 21:34] VITALS: BP 106/64; PULSE 96; RESP 18; O2SAT 95
[2023-01-20 21:54] LABS: Reflex Lactic Acid Yes or No No Lactic Reflex
== END 2023-01-20 21:35 | disposition home or self-care (01) ==
PROVIDERS: Emergency Provider Emergency Medicine; PCP Physician Assistant
DX: K52.9 Noninfective gastroenteritis and colitis, unspecified (principal); E83.42 Hypomagnesemia; E78.5 Hyperlipidemia, unspecified; I10 Essential (primary) hypertension; F17.210 Nicotine dependence, cigarettes, uncomplicated
CPT/HCPCS: 36415; 80053; 81003; 82150; 83605; 83690; 83735; 84484; 85025; 93005; 96361; 96365; 96375; 99284; J1885; J2405; J3475; J7030

== ENCOUNTER 2023-02-13 16:46 | Emergency (ER) | payer OTHER, SELFPAY ==
[2023-02-13 16:46] VITALS: BP 130/93; PULSE 100; RESP 16; TEMP 36.2; O2SAT 98
--- NOTE | 2023-02-13 17:08 | ED.GENADULT ---
HPI - General Adult General Chief complaint: Neck Pain/Injury Stated complaint: Head, neck, and left arm pain Time Seen by Provider: 02/13/23 17:04 History of Present Illness HPI narrative: The patient is a 52-year-old woman with history of hypertension, hyperlipidemia, depression, and GERD. I had seen her here on 01/20/2023 for an episode of gastroenteritis from which she has recovered. The patient now returns to the emergency room: She was in her shed where by some metal pillars from a gazebo fell down from a shelf and hit her in the posterior aspect of her left lateral neck and also in the left forearm distally dorsally. She is able to have full function of her neck and arms without any issues. Has not needed any pain medications. She has mild swelling at the left distal forearm dorsally. Full range of motion. No other complaints. No loss of consciousness. No headache. No contusion in the back of her head or neck. Related Data Home Medications Medication Instructions Recorded Confirmed atorvastatin 20 mg tablet 20 mg PO DAILY 02/13/21 02/13/23 lamotrigine 100 mg tablet 100 mg PO DAILY 02/13/21 02/13/23 omeprazole 40 mg capsule,delayed 40 mg PO DAILY 02/13/21 02/13/23 release oxybutynin chloride 5 mg tablet 5 mg PO DAILY 02/13/21 02/13/23 potassium chloride 10 mEq 10 meq PO DAILY 02/13/21 02/13/23 capsule,extended release quetiapine 100 mg tablet 100 mg PO DAILY 02/13/21 02/13/23 trazodone 100 mg tablet 100 mg PO HS 02/13/21 02/13/23 venlafaxine 150 mg 150 mg PO DAILY 02/13/21 02/13/23 capsule,extended release 24 hr spironolactone 25 mg tablet 75 mg PO DAILY 01/20/23 02/13/23 Allergies Allergy/AdvReac Type Severity Reaction Status Date / Time cephalexin [From Keflex] AdvReac Rash Verified 02/13/23 17:04 clarithromycin [From Biaxin] AdvReac Rash Verified 02/13/23 17:04 CEPHALEXIN MONOHYDRATE Allergy Mild Itching Uncoded 01/20/23 18:41 Review of Systems Review of Systems: All systems reviewed & are unremarkable except as noted in HPI and below Constitutional: Constitutional: Reports as per HPI, Reports no additional constitutional complaints, Denies chills, Denies excessive sweating, Denies fatigue, Denies fever(s), Denies headache(s) and Denies weakness Eyes: Eyes: Reports as per HPI, Reports no additional eye complaints, Denies change in vision and Denies photophobia ENT: Reports system reviewed and no additional complaints, except as documented, Reports as per HPI, Denies dysphagia, Denies vertigo, Denies dizziness, Denies headache(s), Denies lip swelling, Denies nasal congestion, Denies sore throat, Denies throat swelling and Denies tongue swelling Cardiovascular: Cardiovascular: Reports as per HPI, Reports no additional cardiovascular complaints, Denies chest pain, Denies syncope, Denies rapid heart rate and Denies dyspnea Respiratory: Respiratory: Reports as per HPI, Reports no additional respiratory complaints, Denies chest congestion, Denies cough, Denies dyspnea and Denies wheezing Gastrointestinal: Gastrointestinal: Reports as per HPI, Reports no additional gastrointestinal complaints, Denies abdominal pain, Denies constipation, Denies dysphagia, Denies diarrhea, Denies nausea and Denies vomiting Genitourinary: Genitourinary: Reports as per HPI, Denies hematuria, Denies urinary frequency, Denies dysuria, Denies urinary incontinence and Denies urinary urgency Musculoskeletal: Musculoskeletal: Reports no additional musculoskeletal complaints, Denies back pain, Denies myalgias, Denies arthralgias, Denies joint swelling and Denies numbness Comments: Mild swelling on the dorsal aspect of the distal left forearm with mild tenderness at the site. No breaks in the skin. Integumentary/Breasts: Skin/Breast: Reports system reviewed and no additional complaints, except as docu, Denies pruritus, Denies erythema, Denies rash and Denies skin ulcer Comments: No abrasions or lacerations Neurologic: Reports sys
== END 2023-02-13 17:32 | disposition home or self-care (01) ==
LOC: CHSED 17:15
PROVIDERS: Emergency Provider Emergency Medicine; PCP Physician Assistant
DX: S50.12XA Contusion of left forearm, initial encounter (principal); M54.2 Cervicalgia; R51.9 Headache, unspecified; I10 Essential (primary) hypertension; E78.5 Hyperlipidemia, unspecified; F17.210 Nicotine dependence, cigarettes, uncomplicated; W20.1XXA Struck by object due to collapse of building, initial encounter
CPT/HCPCS: 99282

== ENCOUNTER 2023-07-27 17:09 | Emergency (ER) | payer OTHER, SELFPAY ==
[2023-07-27 17:09] VITALS: BP 100/83; PULSE 100; RESP 16; TEMP 36.4; O2SAT 96
[2023-07-27 17:34] LABS: Appearance Urine Cloudy (Clear); Color Urine Dark Yellow (Yellow); Protein Urine 3+ (Negative); Specific Grav Ur >= 1.030 (1.010-1.020)
[2023-07-27 17:35] LABS: Add Urine Microscopic? YES; Bilirubin Urine 1+ (Negative); Blood Urine 3+ (Negative); Glucose Urine UA Negative (Negative); Ketones Urine Trace (Negative); Leukocyte Esterase Ur 2+ LEU/UL (Negative); Nitrate Urine Positive (Negative); RBC Urine 21-50 /hpf (0-2); Urobilinogen Urine 0.2 mg/dL (0.2-1.0); WBC Clumps Urine Present /hpf; WBC Urine >75 /hpf (0-3)
[2023-07-27 17:36] LABS: Bacteria Urine 4+ /hpf; Mucus Urine Heavy /lpf; Transitional Epi Cells Urine Few /hpf
--- NOTE | 2023-07-27 18:00 | ED.GENADULT ---
HPI - General Adult General Chief complaint: Urogenital-Female Stated complaint: urinary symptoms Time Seen by Provider: 07/27/23 17:10 Source: patient Mode of arrival: ambulatory Limitations: no limitations History of Present Illness HPI narrative: Pt presents for 1 day of symptoms - pain with urination, urgency, frequency. Subjective fever last night but did not take temperature. Denied flank pain. Denied abdominal pain. Onset (ago): day(s) Related Data Home Medications Medication Instructions Recorded Confirmed atorvastatin 20 mg tablet 20 mg PO DAILY 02/13/21 07/27/23 lamotrigine 100 mg tablet 100 mg PO DAILY 02/13/21 07/27/23 omeprazole 40 mg capsule,delayed 40 mg PO DAILY 02/13/21 07/27/23 release oxybutynin chloride 5 mg tablet 5 mg PO DAILY 02/13/21 07/27/23 potassium chloride 10 mEq 10 meq PO DAILY 02/13/21 07/27/23 capsule,extended release quetiapine 100 mg tablet 100 mg PO DAILY 02/13/21 07/27/23 trazodone 100 mg tablet 100 mg PO HS 02/13/21 07/27/23 venlafaxine 150 mg 150 mg PO DAILY 02/13/21 07/27/23 capsule,extended release 24 hr spironolactone 25 mg tablet 75 mg PO DAILY 01/20/23 07/27/23 Allergies Allergy/AdvReac Type Severity Reaction Status Date / Time cephalexin [From Keflex] AdvReac Rash Verified 07/27/23 18:02 clarithromycin [From Biaxin] AdvReac Rash Verified 07/27/23 18:02 CEPHALEXIN MONOHYDRATE Allergy Mild Itching Uncoded 01/20/23 18:41 Review of Systems Constitutional: Constitutional: Reports as per HPI and Reports no additional constitutional complaints Eyes: Eyes: Reports as per HPI and Reports no additional eye complaints ENT: Reports system reviewed and no additional complaints, except as documented and Reports as per HPI Cardiovascular: Cardiovascular: Reports as per HPI and Reports no additional cardiovascular complaints Respiratory: Respiratory: Reports as per HPI and Reports no additional respiratory complaints Gastrointestinal: Gastrointestinal: Reports as per HPI and Reports no additional gastrointestinal complaints Genitourinary: Genitourinary: Reports as per HPI Musculoskeletal: Musculoskeletal: Reports no additional musculoskeletal complaints and Reports as per HPI Integumentary/Breasts: Skin/Breast: Reports system reviewed and no additional complaints, except as docu and Reports as per HPI Neurologic: Reports system reviewed and no additional complaints, except as documented and Reports as per HPI Psychiatric: Psychiatric: Reports no additional psychiatric complaints and Reports as per HPI Endocrine: Endocrine: Reports no additional endocrine complaints and Reports as per HPI Hematologic/Lymphatic: Hematologic/Lymphatic: Reports no additional hematologic/lymphatic complaints and Reports as per HPI Allergic/Immunologic: Allergic/Immunologic: Reports no additional allergic/immunologic complaints and Reports as per HPI PMFSH Past Medical History Medical History Depression GERD (gastroesophageal reflux disease) Hyperlipidemia Hypertension Surgical History Surgical History H/O hemorrhoidectomy History of carpal tunnel surgery History of ear surgery History of tonsillectomy Family History Family History Mother Cerebrovascular accident Hypertension Hyperlipidemia Social History Social History Smoking status: Current every day smoker Tobacco type: cigarettes Alcohol use details: rare, minimal use Substance use type: does not use Gender identity (if verbalized by the patient): Female Spiritual care concerns: No Exam Const: General: cooperative, healthy appearing, comfortable, no acute distress, well developed, alert, awake, average body habitus and well nourished Nutritional Appearance: average body habitus and well nourished
[2023-07-27 18:11] VITALS: BP 132/71; PULSE 62; RESP 16; TEMP 36.9; O2SAT 99
--- NOTE | 2023-07-30 13:51 | PC.NURSE ---
Final urine culture report shows klebsiella pneumoniae, per Dr. Tijerina have patient stop macrobid and start taking bactrim ds 1 tablet twice daily for 5 days. #10, 0 refill. Patient contacted and asked prescription be sent to [facility] in [place]. RN spoke with Lam.
== END 2023-07-27 18:13 | disposition home or self-care (01) ==
PROVIDERS: Emergency Provider Emergency Medicine; PCP Physician Assistant
DX: N30.01 Acute cystitis with hematuria (principal); E78.5 Hyperlipidemia, unspecified; I10 Essential (primary) hypertension; F17.210 Nicotine dependence, cigarettes, uncomplicated; Z79.899 Other long term (current) drug therapy
CPT/HCPCS: 81001; 87077; 87086; 87088; 87186; 99283

== ENCOUNTER 2025-01-08 09:22 | Emergency (ER) | payer OTHER, SELFPAY ==
--- NOTE | ~2025-01-08 | XR_ITS ---
EXAMINATION: XR chest 2V DATE: 01/08/2025 09:45 INDICATION: Shortness of breath. TECHNIQUE: Frontal and lateral views of the chest were obtained. COMPARISON: Chest single view 02/13/2021 FINDINGS: There is no pneumonia, pleural effusion, or pneumothorax. The heart size is normal. IMPRESSION: 1. No acute cardiopulmonary disease. Reviewed, dictated and finalized at location A. [facility]
[2025-01-08 09:22] VITALS: BP 137/90; PULSE 108; RESP 24; TEMP 36.3; O2SAT 98
[2025-01-08 09:25] VITALS: O2SAT 99
[2025-01-08] MEDS: HYDROcodone/acetaminophen (*CRX) 5-325 MG TABLET 1 TAB PO (09:36)
--- NOTE | 2025-01-08 09:44 | ED.URI ---
HPI - URI/Sore Throat General Chief Complaint: Upper Respiratory Infection Stated Complaint: cough, sob Time Seen by Provider: 01/08/25 09:23 Source: patient Mode of arrival: ambulatory Limitations: no limitations History of Present Illness HPI Narrative: 54 years old white female came to the ED by private car from home complaining of coughing, weakness, shortness of breath on exertion started 10 days ago. 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 Patient been taking [id number] medication without improvement. She denies history of tobacco use. Or history of asthma. Related Data Home Medications ?Medication ?Instructions ?Recorded ?Confirmed ?Last Taken ?Type atorvastatin 20 mg tablet 20 mg PO DAILY 02/13/21 07/27/23 04/16/21 History lamotrigine 100 mg tablet 100 mg PO DAILY 02/13/21 07/27/23 04/16/21 History omeprazole 40 mg capsule,delayed 40 mg PO DAILY 02/13/21 07/27/23 04/16/21 History release oxybutynin chloride 5 mg tablet 5 mg PO DAILY 02/13/21 07/27/23 04/16/21 History potassium chloride 10 mEq 10 meq PO DAILY 02/13/21 07/27/23 04/16/21 History capsule,extended release quetiapine 100 mg tablet 100 mg PO DAILY 02/13/21 07/27/23 04/16/21 History trazodone 100 mg tablet 100 mg PO HS 02/13/21 07/27/23 04/16/21 History venlafaxine 150 mg 150 mg PO DAILY 02/13/21 07/27/23 04/16/21 History capsule,extended release 24 hr spironolactone 25 mg tablet 75 mg PO DAILY 01/20/23 07/27/23 Unknown History Allergies Allergy/AdvReac Type Severity Reaction Status Date / Time cephalexin (From Keflex) AdvReac Rash Verified 01/08/25 09:23 clarithromycin (From Biaxin) AdvReac Rash Verified 01/08/25 09:23 CEPHALEXIN MONOHYDRATE Allergy Mild Itching Uncoded 01/08/25 09:23 Review of Systems Review of Systems: All systems reviewed & are unremarkable except as noted in HPI and below PMFSH Past Medical History Medical History Hyperlipidemia Depression Hypertension GERD (gastroesophageal reflux disease) Surgical History Surgical History History of ear surgery History of tonsillectomy H/O hemorrhoidectomy History of carpal tunnel surgery Family History Family History Mother Cerebrovascular accident Hypertension Hyperlipidemia Social History Social History Smoking status: Current every day smoker Tobacco type: cigarettes Alcohol use details: rare, minimal use Substance use type: does not use Gender identity (if verbalized by the patient): Female Spiritual care concerns: No Exam Narrative: General appearance: Well-developed, well-nourished Intermittent, persistent dry cough Skin: Normal color Head: Normocephalic, nontraumatic Eyes: Clear conjunctiva ENT: Oropharynx normal, ears normal, nose normal Neck: Supple, nontender Chest and respiratory: Airway patent, no respiratory distress, no accessory muscle use Heart: Regular rate/rhythm Abdomen: Soft, nontender, no organomegaly, quiet bowel sounds Vascular: Normal peripheral pulses, normal capillary refill. Musculoskeletal: Normal range of motion, nontender back Neurologic: Alert and oriented ?3, PROVIDER NETWORK MANAGER is normal as tested, no gross motor deficit Course Vital Signs Vital signs: Vital Signs Temperature 36.3 C L 01/08/25 09:22 Pulse Rate 108 H 01/08/25 09:22 Respiratory Rate 24 H 01/08/25 09:22 Blood Pressure 137/90 01/08/25 09:22 Pulse Oximetry 98 01/08/25 09:22 Oxygen Delivery Room Air 01/08/25 09:22 Temperature 36.3 C L 01/08/25 09:22 Pulse Rate 108 H 01/08/25 09:22 Respiratory Rate 24 H 01/08/25 09:22 Blood Pressure 137/90 01/08/25 09:22 Pulse Oximetry 99 01/08/25 09:25 Oxygen Delivery Room Air 01/08/25 09:25 MDM - URI/Sore Throat MDM Narrative Medical decision making narrative: patient presents with upper respiratory viral infection like symptoms started 10 days ago. Vital signs showing no fever , saturation 99% on room Physical examination showing persistent dry cough, clear lung, no wheezing or rhonchi. Patient is hyperventilating, restless Differential diagnosis include upper respiratory viral infection, secondary bacterial infection causing bronchitis and/or pneumonia. Respiratory panel came back negative for flu COVID RSV Chest x-ray showed no pneumonia Discharged on doxycyclinek, prednisone, and benzonatate Differential Diagnosis Differential diagnosis: Likely other ( as above) Medical Records Attestation: I reviewed the patient's medical records. Lab Data Attestation: I reviewed the patient's lab results. Critical Care Time Critical Care Time Critical Care Time: No Discharge Plan Discharge Clinical Impression: Acute upper respiratory infection Patient Disposition: Home, Self-Care Condition: Stable Instructions: Antibiotic Form, Upper Respiratory Infection (DC) Additional Instructions: Return if symptoms are worsening , call your family physician for appointment, take Tylenol , ibuprofen as as needed for aches and pain, continue home medications. Drink plenty of fluid like water or warm tea with honey Wrist Cool mist humidifier Gargling with salt water Taking a hot shower, Chicken soup, Tylenol, ibuprofen as needed Patient Language: Croatian Prescriptions: New prednisone 20 mg tablet 40 mg PO DAILY 5 Days Qty: 10 0RF benzonatate 200 mg capsule 200 mg PO TID PRN (Reason: cough) Qty: 30 0RF doxycycline hyclate 100 mg capsule 100 mg PO BID Qty: 20 0RF No Action spironolactone 25 mg tablet 75 mg PO DAILY potassium chloride 10 mEq capsule, extended release 10 meq PO DAILY atorvastatin 20 mg tablet 20 mg PO DAILY venlafaxine 150 mg capsule,extended release 24hr 150 mg PO DAILY omeprazole 40 mg capsule,delayed release(DR/EC) 40 mg PO DAILY quetiapine 100 mg tablet 100 mg PO DAILY trazodone 100 mg tablet 100 mg PO HS oxybutynin chloride 5 mg tablet 5 mg PO DAILY lamotrigine 100 mg tablet 100 mg PO DAILY nitrofurantoin monohyd/m-cryst [Macrobid] 100 mg capsule 100 mg PO Q12H 7 Days Qty: 14 0RF Rx Instructions: must administer with a meal/food Follow-up/Referrals: Rudi,LAM Santiago [Primary Care Provider] -
--- OUTSIDE RECORDS SUMMARY | 2025-01-08 09:49 | XMS_ITS | Referral Summary ---
Author Organization [facility] Address [address] [place] [address] Care Team Providers Care Computing Services Director Name Role Phone Hoda Cabrera MASTER MERCHANDISER Unavailable [phone] Pamela Grijalva Primary Care Provider [phone] Encounters Date Type Department Care Team Description 11/24/[address] [facility] Surgery [address] [facility] Floor [address] [place] [address] CMA from Last 3 Months Allergies Active Allergy Reactions Criticality Noted Date Comments Cephalexin Hives,Itching Medium 12/14/2018 Clarithromycin Hives,Itching Medium 12/14/2018 Medications venlafaxine XR (EFFEXOR-XR) 150 mg 24 hr capsule Take 1 capsule (150 mg total) by mouth 2 (two) times a day 11/20/2022 Active traZODone (DESYREL) 100 mg tablet Take 1 tablet (100 mg total) by mouth nightly 11/24/2022 Active QUEtiapine (SEROquel) 100 mg tablet Take 1 tablet (100 mg total) by mouth nightly 11/24/2022 Active potassium chloride ER 10 mEq CR capsule Take 1 tablet/capsu le (10 mEq total) by mouth 2 (two) times a day 11/16/2022 Active oxybutynin XL (DITROPAN XL) 15 mg 24 hr tablet Take 1 tablet (15 mg total) by mouth daily 11/01/2022 Active omeprazole (PriLOSEC) 40 mg capsule Take 1 capsule (40 mg total) by mouth daily 11/01/2022 Active lamoTRIgine (LaMICtal) 100 mg tablet Take 1 tablet (100 mg total) by mouth daily 11/05/2022 Active atorvastatin (LIPITOR) 20 mg tablet Take 1 tablet (20 mg total) by mouth daily 11/05/2022 Active acyclovir (ZOVIRAX) 200 mg capsule Take 1 capsule (200 mg total) by mouth 2 (two) times a day as needed 10/12/2022 Active hydrOXYzine (ATARAX) 50 mg tablet Take 1 tablet (50 mg total) by mouth 3 (three) times a day as needed 09/10/2023 Active ROPivacaine (NAROPIN) 5 mg/mL (0.5 %) injection 1 mL (5 mg total) Active spironolactone (ALDACTONE) 25 mg tablet TAKE 3 TABLETS BY MOUTH IN THE MORNING 11/13/2023 Active Active Problems Problem Noted Date Diagnosed Date Abnormal mammogram 12/04/2022 Social History Tobacco Use Types Packs/Day Years Used Date Smoking Tobacco: Former Cigarettes Q uit: 2021 Smokeless Tobacco: Never Tobacco Cessation:Counseling Given: Not Answered Personal Safety Answer Date Recorded Getting School Help Needed Not on file 11/12 Comments Unknown Sex and Gender Information Value Date Recorded Sex Assigned at Not on file Legal Sex Female 4:16 PM SHEAR HELPER Gender Identity Not on file Sexual Orientation Not on file Last Filed Vital Signs Vital Sign Reading Time Taken Comments Blood Pressure - - Pulse - - Temperature - - Respiratory Rate - - Oxygen Saturation - - Inhaled Oxygen Concentration - - Weight 95.3 kg (210 lb) 12/10/2023 2:26 PM SHEAR HELPER Height 157.5 cm (5' 2 ) 12/10/2023 2:26 PM SHEAR HELPER Body Mass Index 38.41 12/10/2023 2:26 PM SHEAR HELPER Plan of Treatment Not on file Medical Devices Implanted Type Area Warehouse Consultant Device Identifier Shelf Expiration Date Model / Serial / Lot Bard Peripheral Vascular Ultraclip Bard 17ga 10cm 2 Trigger Permanent Ultrasound [id number] - [id number] Implanted:Qty: 1 on 12/27/2022 at [facility] Left: Breast Bard Peripheral Vascular [id number] / Procedures Procedure Name Priority Date/Time Associated Diagnosis Comments DIAGNOSTIC MAMMOGRAM BILATERAL W ROBIN Schedule Routine, Read Routine (OP Routine) 12/10/2023 4:09 PM SHEAR HELPER Abnormal mammogram from Last 3 Months or Most Recently Relevant to Health Maintenance Results * Diagnostic Mammogram Bilateral W Robin (12/10/2023 4:09 PM SHEAR HELPER) Anatomical Region Laterality Modality Breast Bilateral Mammography 12/10/2023 4:10 PM SHEAR HELPER Impressions 12/10/2023 4:42 PM SHEAR HELPER 1. No suspicious findings to suggest malignancy near the LEFT breast twirl clip at the site of biopsy-proven atypical apocrine adenosis. 2. No mammographic evidence of malignancy in the RIGHT breast. OVERALL FINAL ASSESSMENT: BI-RADS Category 2: Benign. RECOMMENDATION: Recommend follow-up diagnostic breast imaging in 12 months with bilateral diagnostic mammogram. Dictated by: Desmond Reddy MD, PHD The radiology attending physician has personally reviewed this study, and had reviewed and/or edited this written report and agrees with it. Electronically signed by: Zully Billingsley M.D. Narrative 12/10/2023 4:42 PM SHEAR HELPER EXAMINATION: BILATERAL DIGITAL DIAGNOSTIC MAMMOGRAM INCLUDING CAD AND BILATERAL DIGITAL BREAST TOMOSYNTHESIS HISTORY: 53-year-old woman with history of LEFT breast biopsy at the 6 o'clock position 5 cm from the nipple demonstrating a small focus of atypical apocrine adenosis which is considered to have a low potential risk of upgrade to malignancy. After surgical consultation decision was made to follow this area with diagnostic imaging. Patient is due for annual screening mammogram. COMPARISON: Comparison is made with post biopsy images dated 12/27/2022 and prior screening mammograms dating back to 2018. TECHNIQUE: Full field digital mammographic views of BOTH breasts were performed, including computer aided detection (CAD) and BILATERAL digital breast tomosynthesis (DBT). BREAST PARENCHYMAL COMPOSITION: There are scattered areas of fibroglandular density. MAMMOGRAM FINDINGS: There is a questioned asymmetry within the outer right breast at mid depth on the craniocaudal which partially disperses on spot compression images and appears to correlate with the equal density masses, unchanged dating back to 2019, therefore deemed benign. There is no new suspicious mammographic abnormality noted within the right breast. Redemonstrated ribbon and twirl clips are seen in the lower inner LEFT breast. There is no new suspicious mammographic abnormality noted to either the postbiopsy] specifically controlled which demonstrated atypia. There is no new suspicious mammographic abnormality noted within the left breast. Procedure Note Zully Billingsley MD - 12/10/2023 EXAMINATION: BILATERAL DIGITAL DIAGNOSTIC MAMMOGRAM INCLUDING CAD AND BILATERAL DIGITAL BREAST TOMOSYNTHESIS HISTORY: 53-year-old woman with history of LEFT breast biopsy at the 6 o'clock position 5 cm from the nipple demonstrating a small focus of atypical apocrine adenosis which is considered to have a low potential risk of upgrade to malignancy. After surgical consultation decision was made to follow this area with diagnostic imaging. Patient is due for annual screening mammogram. COMPARISON: Comparison is made with post biopsy images dated 12/27/2022 and prior screening mammograms dating back to 2018. TECHNIQUE: Full field digital mammographic views of BOTH breasts were performed, including computer aided detection (CAD) and BILATERAL digital breast tomosynthesis (DBT). BREAST PARENCHYMAL COMPOSITION: There are scattered areas of fibroglandular density. MAMMOGRAM FINDINGS: There is a questioned asymmetry within the outer right breast at mid depth on the craniocaudal which partially disperses on spot compression images and appears to correlate with the equal density masses, unchanged dating back to 2019, therefore deemed benign. There is no new suspicious mammographic abnormality noted within the right breast. Redemonstrated ribbon and twirl clips are seen in the lower inner LEFT breast. There is no new suspicious mammographic abnormality noted to either the postbiopsy] specifically controlled which demonstrated atypia. There is no new suspicious mammographic abnormality noted within the left breast. IMPRESSION: 1. No suspicious findings to suggest malignancy near the LEFT breast twirl clip at the site of biopsy-proven atypical apocrine adenosis. 2. No mammographic evidence of malignancy in the RIGHT breast. OVERALL FINAL ASSESSMENT: BI-RADS Category 2: Benign. RECOMMENDATION: Recommend follow-up diagnostic breast imaging in 12 months with bilateral diagnostic mammogram. Dictated by: Desmond Reddy MD, PHD The radiology attending physician has personally reviewed this study, and had reviewed and/or edited this written report and agrees with it. Electronically signed by: Zully Billingsley M.D. Amparo Borges NP IMG MAMMO PROCEDURES Fin al Result from Last 3 Months or Most Recently Relevant to Health Maintenance Insurance [facility]PP[facility] Address: [address] [address] [employer] [facility]/PPO Address: [facility] [address] [place] [address] IDPA IDPA Care Teams Computing Services Director Relationship Specialty Start Date End Date Pamela Grijalva PA [address] [place] [address] PCP - General Physician Media Associate 11/15/22 Hoda Cabrera NP Nurse Practitioner Obstetrics and Gynecology 11/14/22
--- OUTSIDE RECORDS SUMMARY | 2025-01-08 09:49 | XMS_ITS | Encounter Summary ---
Author Organization [facility] Address [address] [place] [address] Care Team Providers Care Lining Parts Sewer Name Role Phone Unavailable Primary Care Provider Unavailabl e Reason for Visit * Diagnostic Imaging (Routine) - Closed Specialty Diagnoses / Procedures Referred By Regine ace Referred To Contact Procedures Breast Imaging Screening Outside Reference Amparo Borges NP Phone: tel: fax: Referral ID Status Reason Start Date Expiration Date Visits Re quested Visits Authorized [id number] Closed 11/22/2022 12/22/2023 1 1 Encounter Details Date Type Department Care Team (Late st Contact Info) Description 11/07/2017 Hospital Encounter [facility] [address] [place] [id number] Social History Tobacco Use Types Packs/Day Years Used Date Smoking Tobacco: Former Cigarettes Q uit: 2021 Smokeless Tobacco: Never Personal Safety Answer Date Recorded Getting School Help Needed Not on file 11/12 Comments Unknown Sex and Gender Information Value Date Recorded Sex Assigned at Not on file Legal Sex Female 4:16 PM CAREER REPRESENTATIVE Gender Identity Not on file Sexual Orientation Not on file documented as of this encounter Plan of Treatment Not on file documented as of this encounter Procedures Procedure Name Priority Date/Time Associated Diagnosis Comments BREAST IMAGING MG SCREENING OUTSIDE REFERENCE Schedule Routine, Read Routine (OP Routine) 11/07/2017 12:00 AM CAREER REPRESENTATIVE documented in this encounter Results * Breast Imaging Screening Outside Reference (11/07/2017 12:00 AM CAREER REPRESENTATIVE) Impressions [facility] - 11/22/2022 10:16 AM CAREER REPRESENTATIVE These images are for Reference purposes only and have not been reviewed by [facility] Radiology. There will be no report generated by a [facility] Radiologist. Narrative [facility] - 11/22/2022 10:16 AM CAREER REPRESENTATIVE EXAMINATION: Images For Reference Purposes Only us Amparo Borges NP IMG MAMMO PROCEDURES Fin al Result [facility] documented in this encounter Visit Diagnoses Not on filedocumented in this encounter
--- OUTSIDE RECORDS SUMMARY | 2025-01-08 09:49 | XMS_ITS | Clinical Summary ---
Author Organization [facility] Address [address] [place] [address] Care Team Providers Care Phototypesetter Operator Name Role Phone Unavailable Primary Care Provider Unavailabl e Allergies Active Allergy Reactions Criticality Noted Date Comments Clarithromycin Itching 01/11/2020 Cephalexin Itching 01/11/2020 Social History Tobacco Use Types Packs/Day Years Used Date Smoking Tobacco: Never Assessed Comments Unknown Sex and Gender Information Value Date Recorded Sex Assigned at Not on file Legal Sex Female 12:23 PM PROCESS ENGINEERING TECHNICIAN Gender Identity Not on file Sexual Orientation Not on file Plan of Treatment Health Maintenance Due Date Last Done Comments Cervical Cancer Screening Pa p Smear (Age 30 to 64) Every 3 Years 1970 Colorectal Cancer Screening Colonoscopy (10 Years) 1970 Annual Physical 1973 Hepatitis C 1988 DTaP, Tdap and Td Vaccines ( 1 - Tdap) 1989 Hepatitis B Vaccines (1 of 3 - 19+ 3-dose series) 1989 Cervical Cancer Screening Pa p with HPV Testing (Age 30 to 64) Every 5 Years 2000 Cervical Cancer Screening with HPV 2000 Mammogram Screening 2010 Zoster Vaccines (1 of 2) 2020 COVID-19 Vaccine (2023-2 5 season) 2024 Influenza Adult (#1) 2024 Meningococcal B Vaccine Aged Out No l onger eligible based on patient's age to complete this topic Meningococcal Vaccine Aged Out No gayle bert eligible based on patient's age to complete this topic Pneumococcal Vaccine: Pediat rics (0 to 5 Years) and At-Risk Patients (6 to 64 Years) Aged Out No longer eligible b ased on patient's age to complete this topic RSV Immunizations Under 20 Months Aged Out No longer eligible based on patient's age to complete this topic Insurance [employer]
--- OUTSIDE RECORDS SUMMARY | 2025-01-08 09:49 | XMS_ITS | Clinical Summary ---
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 Active lamoTRIgine (LAMICTAL) 100 MG Tablet Take 100 mg by mouth 2 times daily. Active QUEtiapine (SEROQUEL) 100 MG Tablet Take 100 mg by mouth 2 times daily. Active traZODone (DESYREL) 50 MG Tablet Take 50 mg by mouth 2 times daily. Active oxybutynin (DITROPAN) 5 MG Tablet Take 5 mg by mouth 3 times daily. Active losartan potassium-hydro chlorothiazide (HYZAAR) 100-25 MG Tablet Take 1 Tab by mouth daily. Active metoprolol Succinate (TOPROL-XL) 25 MG TABLET SR 24 HR Take 25 mg by mouth daily. Active atorvastatin (LIPITOR) 20 MG Tablet Take 20 mg by mouth daily. Active MULTIPLE VITAMIN PO Take by mouth. Acti ve Cholecalciferol (VITAMIN D3 PO) Take by mouth. Active omeprazole (PRILOSEC) 20 MG CAPSULE DELAYED RELEASE Take 20 mg by mouth daily. Active VALACYCLOVIR HCL PO Take 500 mg by mouth as needed. Active hydrOXYzine (ATARAX) 50 MG Tablet Take 50 mg by mouth as needed. Active potassium chloride (MICRO-K) 10 MEQ Capsule CR Take 1 Cap by mouth daily. TO REPLACE LOW POTASSIUM 30 Cap 9 Active ondansetron (ZOFRAN) 4 MG Tablet Take 1 Tab by mouth every 8 hours as needed for Nausea - 1st line. 10 Tab 9 Active Immunizations Immunization Administration Dates Next Due Influenza Vaccine, Quadrivalent, PF 08/25/2019 Social History Tobacco Use Types Packs/Day Years Used Date Smoking Tobacco: Every Day Cigarettes Smokeless Tobacco: Never Alcohol Use Standard Drinks/Week Comments Yes 0 (1 standard drink = 0.6 oz pur e alcohol) rare Comments No Sex and Gender Information Value Date Recorded Sex Assigned at Not on file Legal Sex Female 2:22 PM CDT Gender Identity Not on file Sexual Orientation Not on file Last Filed Vital Signs Vital Sign Reading Time Taken Comments Blood Pressure 116/68 12/14/2018 1:28 PM DYE FEEDER Pulse 78 12/14/2018 1:28 PM DYE FEEDER Temperature 36.8 C (98.2 F) 12/14/2018 11:35 AM DYE FEEDER Respiratory Rate 18 12/14/2018 1:28 PM DYE FEEDER Oxygen Saturation 95% 12/14/2018 1:28 PM DYE FEEDER Inhaled Oxygen Concentration - - Weight 86.2 kg (190 lb) 12/14/2018 11:35 AM DYE FEEDER Height 154.9 cm (5' 1 ) 12/14/2018 11:35 AM DYE FEEDER Body Mass Index 35.9 12/14/2018 11:35 AM DYE FEEDER Plan of Treatment Health Maintenance Due Date Last Done Comments Hepatitis C Virus (HCV) Screening 1970 TdaP Immunization 1970 Hepatitis B Immunization (1 of 3 - 19+ 3-dose series) 1989 Pap Smear 1991 Cervical Cancer Screening (CCS) 2000 HPV/Cotest 2000 Colonoscopy 2015 Colorectal Cancer Screening 2015 Cologuard 2020 Immunochemical Fecal Occult Blood 2020 Pneumococcal Immunization (5 0+ years) (1 of 1 - PCV) 2020 Zoster Immunization (1 of 2) 2020 Influenza Immunization (#1) 2024 08/25/2019 SARS-COV-2 Immunization (4 - season) 2024 11/01/2021, 11/29/2020, 11/01/2020 Respiratory Syncytial Virus (RSV) Immunization (Adult) (1 - 1-dose 75+ series) 2045 Discussion re Starting/Frequency of Mammograms Discontinued 07/08/2019 Mammogram Discontinued 07/08/2019 Meningococcal Immunization (ACWY) Aged Out No longer eligible based on patient's age to complete this topic Pneumococcal Immunization Combined Aged Out No longer eligible based on patient's age to complete this topic Rotavirus Immunization Aged Out No lo nger eligible based on patient's age to complete this topic Procedures Procedure Name Priority Date/Time Associated Diagnosis Comments CYN SCREENING BILATERAL DIGITAL W CAD W [place] Routine 07/08/2019 1:32 PM CDT Screening mammogram for high-risk patient from Last 3 Months or Most Recently Relevant to Health Maintenance Results * CYN SCREENING BILATERAL DIGITAL W CAD W [place] (07/08/2019 1:32 PM CDT) Anatomical Region Laterality Modality breast Bilateral Mammography 07/08/2019 1:11 PM CDT Narrative 07/15/2019 3:57 PM CDT - CYN SCREENING BILATERAL DIGITAL W CAD W [place] BILATERAL DIGITAL SCREENING MAMMOGRAM 3D/2D WITH CAD WITH MEDIOLATERAL OBLIQUE CRANIOCAUDAL: 07/08/2019 The study was acquired using digital technology and interpreted from soft copy. Current study was also evaluated with ICAD version 7.2. CLINICAL: Routine screening. Patient has no complaints. No personal history of cancer. No family history of breast cancer. COMPARISONS: Comparison is made to exams dated: 11/07/2017 and 03/16/2011 [facility]. BREAST TISSUE:There are scattered fibroglandular densities in both breasts. FINDINGS: No significant masses, calcifications, or other findings are seen in either breast. There has been no significant interval change. IMPRESSION: BI-RAD 1 NEGATIVE There is no mammographic evidence of malignancy. A 1 year screening mammogram is recommended. The patient has been or will be contacted. The patient will be entered into a reminder system with a target due date of 1 year for her next screening exam. Electronically signed by: Yazmin kang/radha:07/15/2019 11:32:52 Air Intelligence Officer: Kathy Redmond)(M), [facility] letter sent: Normal Exam Reading location: [facility] BI-RADS: 1 Negative Procedure Note Yazmin Copeland MD - 07/15/2019 - CYN SCREENING BILATERAL DIGITAL W CAD W [place] BILATERAL DIGITAL SCREENING MAMMOGRAM 3D/2D WITH CAD WITH MEDIOLATERAL OBLIQUE CRANIOCAUDAL: 07/08/2019 The study was acquired using digital technology and interpreted from soft copy. Current study was also evaluated with ICAD version 7.2. CLINICAL: Routine screening. Patient has no complaints. No personal history of cancer. No family history of breast cancer. COMPARISONS: Comparison is made to exams dated: 11/07/2017 and 03/16/2011 [facility]. BREAST TISSUE:There are scattered fibroglandular densities in both breasts. FINDINGS: No significant masses, calcifications, or other findings are seen in either breast. There has been no significant interval change. IMPRESSION: BI-RAD 1 NEGATIVE There is no mammographic evidence of malignancy. A 1 year screening mammogram is recommended. The patient has been or will be contacted. The patient will be entered into a reminder system with a target due date of 1 year for her next screening exam. Electronically signed by: Yazmin kang/radha:07/15/2019 11:32:52 Air Intelligence Officer: Kathy West([place])(M), [facility] letter sent: Normal Exam Reading location: [facility] BI-RADS: 1 Negative us Tricia Flores MD IMG MAMMO ORDERABLES Final Result from Last 3 Months or Most Recently Relevant to Health Maintenance
--- OUTSIDE RECORDS SUMMARY | 2025-01-08 09:49 | XMS_ITS | Data Portability ---
Author Organization [facility] Address [address] [place] [address] Care Team Providers Care Manager Rn Case Name Role Phone XOCHILT LOERA Primary Care Provider Assessment Encounter Date Assessment Date Assessment LastModified by Organization Details LastModified Time 11/08/2022 11/08/2022 Annual gynecological exam performed. Patient will come back in a year unless there are new symptoms. [email or web address] Not available 11/08/2022 16:52:03 12/17/2023 12/17/2023 Annual gynecological exam performed. Patient will come back in a year unless there are new symptoms. [email or web address] Not available 12/17/2023 10:23:42 Plan of Treatment Reminders Order Date Submit Date Provider Last Modified By Organization Details Last Modified Time Details Appointments None recorded. Lab None recorded. Referral breast surgery referral - ATTN: Mary 4. Indetermina te left breast calcificati on's. Stereotacti c Biopsy is recommended .Please contact the patient to schedule an appointment with a breast specialist. Attached are the patients demographic s, most recent office visit notes and imaging results.If you have any questions, please contact me at [phone].Thank you,Chantal, Referral's 2022 023 [facility] [place], [address] [facility] [address] [facility], [place], [address], 3 18:21:36 Procedures None recorded. Surgeries None recorded. Imaging None recorded. Medication Orders nystatin-tr iamcinolone 100,000 unit/gram-0 .1 % topical ointment 2023 024 [facility], [address] [place], [address], 4 16:38:24 Patient TargetsNo targets recorded. Patient InstructionsNo instructions recorded. Reason for Referral Breast Surgery Referral for Mammography abnormal Birads 4. Indeterminate left breast calcification's. Stereotactic Biopsy is recommended. ATTN: KIMBirads 4. Indeterminate left breast calcification's. Stereotactic Biopsy is recommended.Please contact the patient to schedule an appointment with a breast specialist.Attached are the patients demographics, most recent office visit notes and imaging results.If you have any questions, please contact me at [phone].Thank you,Chantal Referral's Referring Physician: Hoda Cabrera, HELPER TEACHER, Encounter Date: 11/08/2022 Results Created Date Observation Date Name Description Value Unit Range Abnormal Flag Note LastModifiedBy Organization Detail LastModifiedTime 09/08/20 20 09/12/2020 surgi moon patho logy study surgical pathology View Report ACCES GUNNAR #: [id number] Patie nt Name: KIM GERARDO Age-S ex-DO B: 49y F [birth year] Proce dure Date: 09/08 Acces gunnar Date: 2019 Pt Acct# : Repor t Date: 2019 Locat ion: OFFIC E Physi belle( s): Henry Oropeza marshall P A T H O L O G Y R E P O R T DIAGN OSIS: Skin from anal area, biops y: Condy jacquelin acumi natum . Negat caroline for high- grade dyspl farooq or malig deborah . Juve Ndiaye MD elect roger grant 09/12 03:00 PM Gross Descr iptio n: Recei paulette in forma teresa label ed Kim wise, #1 BX anal area are 2 alexander- white soft tissu e biops ies measu ring 0.2 cm in great est dimen gunnar. Entir javier submi tted in casse tte 1A, 2/. Pleas e note this tissu e may not survi ve proce ssing . (LLG, AP2,m bj) Micro scopi c Descr iptio n: Micro scopi c exami natio n is perfo rmed. Proce dure: Biops y Clini moon Histo ry: Disor tamara of the skin and subcu taneo us tissu e, unspe cifie d (L98. 9); wart from anal area Speci men List: Wart from anal area End of Repor t Techn ical servi gus provi ded by [facility] iat[facility]insula Patho logis [employer], d/b/a [facility], [address] [place] [address] Demarco Cheung MD, [facility] [employer] [facility]. Case revie wed and diagn osis rende red at [facility] iated Patho logis [employer], [address], [place] [address] Juve Ndiaye MD, Labor [employer] [facility]. CONFI DENTI AL Not Available [facility]) [address], [place], [address], 09/12/2020 16:02:18 11/08/19 23 11/08/2022 IMAGE GUIDE D PAP AND HPV REGAR DLESS image guided Pap, HPV regardless of Pap result SEE RESULT S BELOW CASE REPOR T: Cytol ogy Gynec ologi moon Repor t Case: [id number] Autho rierin g Provi tamara: Hoda Cabrera, DATA ENTRY COORDINATOR Colle cted: 11/08 1756 Order ing Locat ion: [place] Patho logy Recei paulette: 11/09 0233 First Scree n: Noora ni, Moham ed, CT Speci men: Scree jailyn Pap - Image d, Cervi x STATE MENT OF ADEQU ACY: Satis facto ry for evalu ation Trans forma tion zone compo nent prese nt FINAL DIAGN OSIS: Negat caroline for Intra epith elial Lesio n or Malarnulfo cabrera (NIL) . Elect roger herr celina d by Isidoro Fairbanks ed, CT on 023 at 5:32 PM ----- ----- ----- ----- ----- ----- ----- ----- ----- ----- ----- ----- ----- ----- ----- ----- ----- ---- HPV RESUL TS: HPV mRNA E6/E7 : No HPV mRNA Detec manohar NOTE: This high risk HPV mRNA assay detec ts fourt een high- risk HPV types (16, 18, 31, 33, 35, 39, 45, 51, 52, 56, 58, 59, 66, 68) witho ut diffe renti ation . COMME NT: Note: This speci men was revie wed by a Cytot echno logis t and/o r Patho logis t (as indic ated in this repor t) after evalu ation using the Thinp rep Imagi ng Syste m. CLINI MONO INFOR MATIO N: Menst rual Statu s: LMP (if appli cable ): Clini moon Histo ry/Pr eviou s Pap: Type of Neopl farooq (if appli cable ): Signi fican t Clini moon Findi ngs: Other Histo ry: Hormo dafne (if appli cable ): PAP EDUCA GABRIELA L NOTE: The Pap Test is a scree jailyn test with an inher ent false negat caroline rate. Liqui d-bas ed sampl ing may decre ase, but will not elimi ky, false negat caroline resul ts. A negat caroline resul t does not precl ude the prese nce and/o r devel opmen t of disea se, since the prese nce of abnor mal cells in the sampl e depen ds on the locat ion of the lesio n and sampl ing techn ique. Aubree nued regul ar scree jailyn is the best metho d of cance r preve ntion . If repor manohar cytol ogic findi ng do not corre late with physi moon and/o r histo rical findi ngs, furth er inves tigat ion is recom vilma d, as clini vishal mittal nted. Not Available [facility] (Lab) [address], [place], [address], 11/11/2022 18:34:30 12/17/19 24 12/17/2023 VAGIN ITIS/ VAGIN OSIS, DNA PROBE krysta sp. detection, direct probe Negati ve negati ve Not Available [facility] (Lab) [address], [place], [address], 12/18/2023 12:42:35 12/17/19 24 12/17/2023 VAGIN ITIS/ VAGIN OSIS, DNA PROBE gardnerella vag. detection, direct probe Negati ve negati ve Not Available [facility] (Lab) [address] [place], [address], 12/18/2023 12:42:35 12/17/19 24 12/17/2023 VAGIN ITIS/ VAGIN OSIS, DNA PROBE trichomonas vag. detection, direct probe Negati ve negati ve Not Available [facility] (Lab) [address] [place], [address], 12/18/2023 12:42:35 12/17/19 24 12/17/2023 IMAGE GUIDE D PAP AND HPV REGAR DLESS image guided Pap, HPV regardless of Pap result SEE RESULT S BELOW CASE REPOR T: Cytol ogy Gynec ologi moon Repor t Case: [id number] Autho nancy g Provi tamara: Hoda Cabrera, NISHANT Colle cted: 12/17 1523 Order ing Locat ion: [place] Patho logy Recei paulette: 12/18 0344 First Scree n: Noora ni, Moham ed, CT Speci men: Scree jailyn Pap - Image d, Cervi x STATE MENT OF ADEQU ACY: Satis facto ry for evalu ation Trans forma tion zone compo nent prese nt FINAL DIAGN OSIS: Negat caroline for Intra epith elial Lesio n or Malig deborah (NIL) . Elect roger herr celina d by Isidoro Fairbanks ed, CT on 2023 at 6:16 PM ----- ----- ----- ----- ----- ----- ----- ----- ----- ----- ----- ----- ----- ----- ----- ----- ----- ---- HPV RESUL TS: HPV mRNA E6/E7 : No HPV mRNA Detec manohar NOTE: This high risk HPV mRNA assay detec ts fourt een high- risk HPV types (16, 18, 31, 33, 35, 39, 45, 51, 52, 56, 58, 59, 66, 68) witho ut diffe renti ation . COMME NT: This speci men was revie wed by a Cytot echno logis t and/o r Patho logis t (as indic ated in this repor t) after evalu ation using the Thinp rep Imagi ng Syste m. CLINI MOON INFOR MATIO N: Menst rual Statu s: LMP (if appli cable ): Clini moon Histo ry/Pr eviou s Pap: Type of Neopl farooq (if appli cable ): Signi fican t Clini moon Findi ngs: Other Histo ry: Hormo dafne (if appli cable ): PAP EDUCA GABRIELA L NOTE: The Pap Test is a scree jailyn test with an inher ent false negat caroline rate. Liqui d-bas ed sampl ing may decre ase, but will not elimi ky, false negat caroline resul ts. A negat caroline resul t does not precl ude the prese nce and/o r devel opmen t of disea se, since the prese nce of abnor mal cells in the sampl e depen ds on the locat ion of the lesio n and sampl ing techn ique. Aubree nued regul ar scree jailyn is the best metho d of cance r preve ntion . If repor manohar cytol ogic findi ng do not corre late with physi moon and/o r histo rical findi ngs, furth er inves tigat ion is recom vilma d, as josyi vishal mittal nted. Not Available [facility] (Lab) [address], [place], [address], 12/20/2023 19:20:00 09/19/20 20 09/19/2020 MAMMO , scree jailyn, bilat eral No observ ation record ed. [facility] [address] [place], [address], 09/20/2020 16:23:46 11/14/19 23 10/09/2022 MAMMO , diagn ostic , bilat eral No observ ation record ed. [email or web address] Not Available 11/04 12:33:01 12/05/19 23 12/04/2022 US, arsenio t, yaquelina teral No observ ation record ed. [address], [address], 03/18/2023 10:35:01 12/27/19 23 12/27/2022 biops y, breas t (PROC ) No observ ation record ed. [address], [address], 03/18/2023 11:41:47 12/27/19 23 12/27/2022 biops y, breas t, w/ ultra sound alexus nce (PROC ) No observ ation record ed. [address], [address], 03/18/2023 11:42:04 12/31/19 23 12/27/2022 biops y, breas t, w/ ultra sound alexus nce (PROC ) No observ ation record ed. [address], [address], 03/18/2023 11:59:17 12/31/19 23 12/27/2022 biops y, breas t, w/ ultra sound alexus nce (PROC ) No observ ation record ed. [email or web address] [facility] [address] [place], [address], 03/18/2023 11:59:36 12/10/19 24 12/10/2023 MAMMO , diagn ostic , digit al, bilat eral No observ ation record ed. [email or web address] [facility] [address] [place], [address], 12/13/2023 16:30:23 Result Notes None recorded. Problems Name Problem SNOMED Code Status Onset Date Resolution Date Notes Provider Name and Address Organization Details Recorded Time Hypertensive disorder 55405554 Active 2019 Laney kang [facility] 0 19:51:42 Tachycardia 6003672 Active 2019 Laney kang [facility] 0 19:52:31 Mixed anxiety and depressive disorder 387956885 Active 2023 Laney March [facility] 4 14:19:22 Problem Notes None recorded. Procedures Surgical History Date Name Laterality Status Provider Name and Address Organization Details Recorded Time 024 Date of Last Mammogram completed Laney March [facility] 12/17/2023 14:39:46 023 biopsy of breast completed Laney March [facility] 12/17/2023 14:47:08 020 Vulvar Biopsy completed Shaunna Aguirre [facility] [address], [place], [address], [facility] 09/08/2020 14:15:04 020 biopsy of anus completed Laney March [facility] 12/17/2023 14:46:39 020 Date of Last Pap Smear completed [facility] 09/13/2020 19:39:17 020 Skin Tag Removal completed Shaunna Aguirre NISHANT- [address], [place], [address], [facility] 03/15/2020 15:22:06 013 hemorrhoidectomy completed [facility] 12/17/2023 14:44:17 008 tympanotomy completed [facility] 12/17/2023 14:44:27 007 Carpal tunnel surgery completed [facility] 12/17/2023 14:43:38 007 Carpal tunnel surgery completed [facility] 12/17/2023 14:43:44 007 drainage of ganglion completed [facility] 12/17/2023 14:44:02 999 termination of completed [facility] 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 12/17/2023 14:44:11 997 termination of completed [facility] 12/17/2023 14:54:36 990 Dilation and Curettage completed [facility] 12/17/2023 14:43:52 973 procedure on ear completed [facility] 12/17/2023 14:45:05 973 tonsillectomy completed Laney March [facility] 12/17/2023 14:44:38 Imaging Results Imaging Date Name Status LastModified by Organiz ation Details LastModified Time 09/19/2020 MAMMO, screening, bilateral completed [facility] [address] [place], [address], 09/20/2020 16:23:46 10/09/2022 MAMMO, diagnostic, bilateral completed Information not available 11/14/2022 12:33:01 12/04/2022 US, breast, unilateral completed [address], [address], 03/18/2023 10:35:01 12/27/2022 biopsy, breast (PROC) completed [address], [address], 03/18/2023 11:41:47 12/27/2022 biopsy, breast, w/ ultrasound guidance (PROC) completed [address], [address], 03/18/2023 11:42:04 12/27/2022 biopsy, breast, w/ ultrasound guidance (PROC) completed [address], [address], 03/18/2023 11:59:17 12/27/2022 biopsy, breast, w/ ultrasound guidance (PROC) completed [address], [address], 03/18/2023 11:59:36 12/10/2023 MAMMO, diagnostic, digital, bilateral completed [address], [address], 12/13/2023 16:30:23 Procedure Notes None recorded. Medical Equipment None Reported. Allergies Allergen ID Allergen Name Allergen Category Reaction Reaction Severity Criticality Documentation Date Start Date Code Code System Note Provider Name and Address Organization Details Recorded Time 03008 Keflex medicatio n Not available Not available Not available 12/17/202308014 7 RxNorm Laney March null, [facility] 4 10:24:49 524 cephalexi n medicatio n Not available Not available Not available 03/14/2020 223 RxNorm Wendy P[facility], [facility] 0 09:57:06 525 clarithro mycin medicatio n Not available Not available Not available 03/14/202051907 RxNorm Wendy [facility], [facility] 0 09:57:13 Medications Name Sig Start Date Stop Date Status Note LastModified by Organization Details LastModified Time Prescript ion - Change 12/17 completed Not Available Not Available Not Available losartan 50 mg tablet take 1 tablet by oral route every day 11/08 completed Prescrib ed Elsewher e: Yes Loca tion: [facility] odify By: christine petersen DateTime : 04/17/20 18 01:30:00 PM Not Available Not Available Not Available potassium chloride ER 10 mEq capsule,e xtended release TAKE 1 CAPSULE BY MOUTH ONCE DAILY 12/17 completed Not Available Not Available Not Available oxybutyni n chloride ER 15 mg tablet,ex tended release 24 hr TAKE 1 TABLET BY MOUTH TWICE DAILY DIRECTED active Not Available Not Available No t Available atorvasta tin 20 mg tablet TAKE 1 TABLET BY MOUTH AT BEDTIME PLEASE MAKE APPOINTM ENT FOR FURTHER REFILLS active Not Available Not Available No t Available trazodone 50 mg tablet take 1 tablet by oral route 3 times every day after meals 11/08 completed Prescrib ed Elsewher e: Yes Loca tion: [facility] odify By: christine petersen DateTime : 04/17/20 18 01:30:00 PM Not Available Not Available Not Available biotin 5 mg capsule 10/20 completed Prescrib ed Elsewher e: Yes Loca tion: [facility] odify By: emily elkins DateTime : 02/20/20 13 11:00:00 AM Not Available Not Available Not Available metoprolo l succinate ER 50 mg tablet,ex tended release 24 hr take 1 tablet by oral route every day 11/08 completed Prescrib ed Elsewher e: Yes Loca tion: Portia soares [facility] M prafulsundeep By: christine petersen DateTime : 02/28/20 01:00:00 PM Not Available Not Available Not Available venlafaxi ne ER 150 mg capsule,e xtended release 24 hr TAKE 2 CAPSULES BY MOUTH ONCE DAILY DIRECTED active Not Available Not Available No t Available hydroxyzi ne HCl 50 mg tablet TAKE 1 TABLET BY MOUTH THREE TIMES DAILY NEEDED active Not Available Not Available No t Available valacyclo vir 500 mg tablet TAKE 1 CAPLET BY MOUTH TWICE DAILY FOR 3 DAYS 11/08 completed Not Available Not Available Not Available sulfameth oxazole 800 mg-trimet hoprim 160 mg tablet TAKE 1 TABLET BY MOUTH TWICE DAILY FOR 5 DAYS 12/17 completed Not Available Not Available Not Available omeprazol e 40 mg capsule,d elayed release TAKE 1 CAPSULE BY MOUTH ONCE DAILY active Not Available Not Available No t Available quetiapin e 100 mg tablet TAKE 1 TABLET BY MOUTH ONCE DAILY active Not Available Not Available No t Available triamcino lone acetonide 0.1 % topical cream APPLY CREAM TO THE AFFECTED AREA(S) TWICE DAILY IN THE MORNING AND EVENING FOR 5 DAYS (MIX THIS TUBE WITH THE NYSTATIN TUBE) 11/08 completed Not Available Not Available Not Available spironola ctone 25 mg tablet TAKE 3 TABLETS BY MOUTH IN THE MORNING active Not Available Not Available No t Available ondansetr on 8 mg disintegr ating tablet DISSOLVE 1 TABLET IN MOUTH EVERY 6 HOURS NEEDED FOR NAUSEA AND VOMITING active Not Available Not Available No t Available nystatin- triamcino lone 100,000 unit/gram -0.1 % topical ointment APPLY TO THE AFFECTED AREA(S) BY TOPICAL ROUTE 2 TIMES PER DAY FOR 7 DAYS 2023 active Not Available Not Available Not Avai lable Bactroban 2 % topical cream apply by topical route 3 times every day for 10 days a small amount to the affected area 10/29 completed Prescrib ed Elsewher e: No [facility] By: [email or web address] tz Encou nter DateTime : 10/20/20 13 02:45:00 PM Not Available Not Available Not Available losartan 100 mg-hydroc hlorothia zide 25 mg tablet TAKE 1 TABLET BY MOUTH ONCE DAILY 11/08 completed Not Available Not Available Not Available clindamyc in 1 % topical gel APPLY A THIN LAYER OF GEL TO THE AFFECTED AREA(S) TOPICALL Y TWO TIMES DAILY 12/17 completed Not Available Not Available Not Available Lamictal 200 mg tablet take 1 tablet by oral route 2 times every day 11/08 completed Prescrib ed Elsewher e: Yes Loca tion: [facility] odify By: christine petersen DateTime : 02/28/20 17 01:00:00 PM Not Available Not Available Not Available trazodone 100 mg tablet TAKE 1 TABLET BY MOUTH ONCE DAILY DIRECTED active Not Available Not Available No t Available Celexa 20 mg tablet take 1 tablet by oral route every day 04/17 completed Prescrib ed Elsewher e: Yes [facility] By: chrsitine petersen DateTime : 02/28/20 17 01:00:00 PM Not Available Not Available Not Available Xanax 0.25 mg tablet take 1 tablet by oral route 3 times every day 02/27 completed Prescrib ed Elsewher e: Yes Loca tion: [facility] odify By: christine petersen DateTime : 02/20/20 13 11:00:00 AM Not Available Not Available Not Available doxycycli ne monohydra te 100 mg capsule 11/08 completed Not Available Not Available Not Available nystatin 100,000 unit/gram topical cream APPLY CREAM TO THE AFFECTED AREA(S) TWICE DAILY IN THE MORNING AND EVENING FOR 5 DAYS (MIX THIS TUBE WITH THE TRIAMCIN OLONE TUBE) 11/08 completed Not Available Not Available Not Available Restoril 7.5 mg capsule take 1 capsule by oral route every day at bedtime as needed 02/27 completed Prescrib ed Elsewher e: Yes Loca tion: [facility] odify By: christine petersen DateTime : 10/20/20 13 02:45:00 PM Not Available Not Available Not Available magnesium 100 mg capsule 02/27 completed Prescrib ed Elsewher e: Yes Loca tion: [facility] odify By: christine petersen DateTime : 10/20/20 13 02:45:00 PM Not Available Not Available Not Available nystatin- triamcino lone 100,000 unit/g-0. 1 % topical cream APPLY TO THE AFFECTED AREA(S) BY TOPICAL ROUTE 2 TIMES PER DAY IN THEMORNI NG AND EVENING x 5 days 11/08 completed Not Available Not Available Not Available Valtrex 1 gram tablet take 1 tablet by oral route every 12 hours 11/08 completed Prescrib ed Elsewher e: Yes [facility] By: emily elkins DateTime : 10/20/20 13 02:45:00 PM Not Available Not Available Not Available acyclovir 200 mg capsule active Not Available Not Available Not Available mupirocin 2 % topical ointment APPLY A SMALL AMOUNT TO THE AFFECTED AREA BY TOPICAL ROUTE THREE TIMES PER DAY 12/17 completed Not Available Not Available Not Available Vistaril 25 mg capsule take 1 capsule by oral route 4 times every day 11/08 completed Prescrib ed Elsewher e: Yes [facility] By: christine petersen DateTime : 02/28/20 17 01:00:00 PM Not Available Not Available Not Available metoprolo l succinate ER 25 mg tablet,ex tended release 24 hr TAKE 1 TABLET BY MOUTH ONCE DAILY 11/08 completed Not Available Not Available Not Available oxybutyni n chloride 5 mg tablet TAKE 1 TABLET BY MOUTH THREE TIMES DAILY 11/08 completed Not Available Not Available Not Available lamotrigi ne 100 mg tablet TAKE 1 TABLET BY MOUTH TWICE DAILY active Not Available Not Available No t Available loratadin e 10 mg tablet take 1 tablet by oral route every day 11/08 completed Prescrib ed Elsewher e: Yes Loca tion: [facility] odify By: christine petersen DateTime : 04/17/20 18 01:30:00 PM Not Available Not Available Not Available spironola ctone 50 mg tablet 11/08 completed Not Available Not Available Not Available amoxicill in 875 mg-potass ium clavulana te 125 mg tablet TAKE 1 TABLET BY MOUTH EVERY 12 HOURS WITH MEALS FOR 10 DAYS 11/08 completed Not Available Not Available Not Available Flexeril 10 mg tablet take 1 tablet by oral route 2 times every day 02/27 completed Prescrib ed Elsewher e: Yes Loca tion: Portia soares [facility] odify By: christine hodgeunter DateTime : 02/20/20 13 11:00:00 AM Not Available Not Available Not Available B Complex tablet,ex tended release 02/27 completed Prescrib ed Elsewher e: Yes Loca tion: Portia soares [facility] odify By: christine hodgeunter DateTime : 02/20/20 13 11:00:00 AM Not Available Not Available Not Available Diovan 40 mg tablet take 2 tablet by oral route every day 02/27 completed Prescrib ed Elsewher e: Yes Loca tion: [facility] odify By: christine hodgeunter DateTime : 02/20/20 13 11:00:00 AM Not Available Not Available Not Available Oxytrol 3.9 mg/24 hr transderm al patch apply 1 patch by transder mal route 2 times every week 04/17 completed Prescrib ed Elsewher e: Yes [facility] By: christine petersen DateTime : 02/28/20 17 01:00:00 PM Not Available Not Available Not Available ciproflox acin 0.3 %-dexamet hasone 0.1 % ear drops,helena pension INSTILL 4 DROPS INTO AFFECTED EAR(S) TWICE DAILY FOR 7 DAYS 12/17 completed Not Available Not Available Not Available Prempro 0.3 mg-1.5 mg tablet take 1 tablet by oral route every day 02/27 completed Prescrib ed Elsewher e: No Locat ion: [facility] odify By: christine petersen DateTime : 10/22/20 13 03:29:19 PM Not Available Not Available Not Available nitrofura ntoin monohydra te/macroc rystals 100 mg capsule TAKE 1 CAPSULE BY MOUTH EVERY 12 HOURS WITH A MEAL FOR 7 DAYS 12/17 completed Not Available Not Available Not Available duloxetin e 30 mg capsule,d elayed release TAKE 1 CAPSULE BY MOUTH ONCE DAILY IN THE MORNING FOR 30 DAYS active Not Available Not Available No t Available Cymbalta 20 mg capsule,d elayed release take 3 Capsule by oral route every day 02/27 completed Prescrib ed Elsewher e: Yes Loca tion: Portia soares [facility] odify By: christine petersen DateTime : 02/20/20 11:00:00 AM Not Available Not Available Not Available Vistaril 11/08 completed Not Available Not Available Not Available loratadin e 12/17 completed Not Available Not Available Not Available atorvasta tin 11/08 completed Not Available Not Available Not Available quetiapin e 09/21 completed Not Available Not Available Not Available spironola ctone 12/17 completed Not Available Not Available Not Available trazodone 11/08 completed Not Available Not Available Not Available Lamictal 12/17 completed Not Available Not Available Not Available Valtrex 11/08 completed Not Available Not Available Not Available Vitamin D3 10 mcg (400 unit) capsule 02/27 completed Prescrib ed Elsewher e: Yes Loca tion: Carmelita rodger [facility] odify By: christine petersen DateTime : 02/20/20 11:00:00 AM Not Available Not Available Not Available Chantix 0.5 mg tablet take 1 tablet by oral route 2 times every day for 3 days with a glass of water after meals 03/25 completed Prescrib ed Elsewher e: Yes Loca tion: [facility] odify By: emily elkins DateTime : 02/20/20 11:00:00 AM Not Available Not Available Not Available Seroquel 50 mg tablet take 1 tablet by oral route 2 times every day 12/17 completed Prescrib ed Elsewher e: Yes [facility] christine [facility]en DateTime : 02/28/20 17 01:00:00 PM Not Available Not Available Not Available One Daily For Women 18 mg-0.4 mg tablet 02/27 completed Prescrib ed Elsewher e: Yes Loca tion: [facility] odify By: christine hodgeuntsoraya DateTime : 02/20/20 13 11:00:00 AM Not Available Not Available Not Available metoprolo l lovett-hydroc hlorothia z 11/08 completed Not Available Not Available Not Available Vicodin 5 mg-300 mg tablet take 1 tablet by oral route every 4 - 6 hours as needed for pain 02/27 completed Prescrib ed Elsewher e: Yes Loca tion: [facility] odify By: christine petersen DateTime : 02/20/20 13 11:00:00 AM Not Available Not Available Not Available desvenlaf axine succinate ER 25 mg tablet,ex tended release 24 hr TAKE 2 TABLETS BY MOUTH ONCE DAILY WITH SUPPER active Not Available Not Available No t Available Vitals Date Recorded Body height Body mass index (BMI) Body weight Systolic blood pressure Diastolic blood pressure Provider Name and Address Organization Details Last Updated DateTime 11/08/2022 154.94 cm 39.9 kg/m2 02736.71 g 119 mm[Hg] 81 mm[Hg] Shirley Funk [facility] 3 16:52:20 Date Recorded Body height Body mass index (BMI) Body weight Systolic blood pressure Diastolic blood pressure Provider Name and Address Organization Details Last Updated DateTime 12/17/2023 154.94 cm 35 kg/m2 45740.59 g 128 mm[Hg] 85 mm[Hg] Laney March [facility] 4 10:24:41 Date Recorded Body height Body mass index (BMI) Body weight Systolic blood pressure Diastolic blood pressure Provider Name and Address Organization Details Last Updated DateTime 01/01/2024 154.94 cm 36.2 kg/m2 70798.58 g 120 mm[Hg] 78 mm[Hg] Shweta Bailey [facility] 4 10:05:20 Date Recorded Body height Body mass index (BMI) Body weight Systolic blood pressure Diastolic blood pressure Provider Name and Address Organization Details Last Updated DateTime 09/08/2020 157.48 cm 36.4 kg/m2 14935.88 g 119 mm[Hg] 80 mm[Hg] Laney March [facility] 0 14:04:02 Date Recorded Body height Body mass index (BMI) Body weight Systolic blood pressure Diastolic blood pressure Provider Name and Address Organization Details Last Updated DateTime 09/21/2020 157.48 cm 35.7 kg/m2 88679.51 g 133 mm[Hg] 81 mm[Hg] Melody Castillo [facility] 0 09:33:26 Social History Question Answer Notes LastModified by Organizat ion Details LastModified Time Tobacco Smoking Status Current Every Day Smoker Shirley kang, [facility] 11/08/2022 16:52:29 What Is Your Level Of Alcohol Consumption? Occasional Information not available 09/13/2020 Are You Blind Or Do You Have Difficulty Seeing? Yes Information not available 11/08/2022 What Is Your Level Of Caffeine Consumption? Heavy Information not available 11/08/2022 How Much Tobacco Do You Chew? None Information not available 11/08/2022 In The 14 Days Before Symptom Onset, Have You Had Close Contact With A Laboratory-confir med COVID-19 While That Case Was Ill? Yes Information not available 11/08/2022 In The 14 Days Before Symptom Onset, Have You Had Close Contact With A Person Who Is Under Investigation For COVID-19 While That Person Was Ill? Yes Information not available 11/08/2022 Have You Been To An Area Known To Be High Risk For COVID-19? Yes Information not available 11/08/2022 Are You Deaf Or Do You Have Serious Difficulty Hearing? Yes Information not available 11/08/2022 What Type Of Diet Are You Following? REGULAR Information not available 11/08/2022 Do You Or Have You Ever Used E-cigarettes Or Vape? Current User Of Electronic Cigarettes Information not available 11/08/2022 What Is The Highest Grade Or Level Of School You Have Completed Or The Highest Degree You Have Received? 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 No Information not available 11/08/2022 What Was The Date Of Your Most Recent Tobacco Screening? 09/08/2020 Information not available 11/08/2022 Do You Use Your Seat Belt Or Car Seat Routinely? Yes Information not available 11/08/2022 Do You Have Smoke And Carbon Monoxide Detectors In Your Home? Yes Information not available 11/08/2022 Do You Or Have You Ever Used Smokeless Tobacco? Never Used Smokeless Tobacco Information not available 11/08/2022 How Much Tobacco Do You Smoke? No Information not available 11/08/2022 Do You Feel Stressed (tense, Restless, Nervous, Or Anxious, Or Unable To Sleep At Night)? [id number] Information not available 11/08/2022 Do You Use Any Illicit Or Recreational Drugs? No Information not available 11/08/2022 Do You Use Sunscreen Routinely? No Information not available 11/08/2022 Have You Used IV Drugs? No Information not available 11/08/2022 Sex: Unknown Functional Status Question Answer Note LastModified by Organizat ion Details LastModified Time Do you have difficulty walking or climbing stairs? No Information not available 11/08/2022 Are you able to walk? YESWOREST Information not available 11/08/2022 Are you able to care for yourself? Yes Information not available 11/08/2022 Do you have difficulty dressing or bathing? No Information not available 11/08/2022 What is your exercise level? Occasional [email or web address] Information not available 09/13/2020 Mental Status None recorded. Family History Relationship Description Onset Age of this Age Resolved Age Notes LastModified by Organization Details LastModified Time Paternal Grandfather Carcinoma in situ of lung [email or web address] Not available 09:55:57 Paternal Grandfather Heart disease [email or web address] Not available 2019 10:00:04 Paternal Grandmother Heart disease [email or web address] Not available 2019 10:00:04 Paternal Grandmother Diabetes mellitus [email or web address] Not available 2019 10:00:36 Maternal Grandmother Multiple myeloma Not available 2023 09:55:57 Mother Hypercholest erolemia [email or web address] Not available 2019 10:00:46 Mother Hypertensive disorder [email or web address] Not available 2019 10:00:54 Mother Psychotic disorder [email or web address] Not available 2023 09:55:57 Mother Hyperlipidem ia [email or web address] Not available 2023 09:55:57 Notes:Maternal grandmother: Multiple Myeloma Mother: Hypertension, Hyperlipidemia, psychiatric disease Paternal grandfather: Cancer, lung, Heart disease Paternal grandmother: Heart disease, Diabetes mellitus Medical History Condition Response Allergies (Food, seasonal, environmental ) Y Other Y Breast Cancer N Drug/Latex Allergies/Reactions Y Blood Transfusion N Dermatologic Disorders N Lung Disease N Defects or Inherited Disease N Breast Problem Y Gestational Diabetes N Hematologic disorders N Anesthesia Complications N History of STI Y Deep Vein Thrombosis N Polycystic ovary syndrome N Anxiety Disorder Y Autoimmune disease N Arthritis N Infertility N Polyps N Acid Reflux (GERD) N History of abnormal pap N Cancer N Stroke N Varicosities N Neurologic/Epilepsy N Endometriosis N High Cholesterol Y Headaches N Fibromyalgia N Kidney Disease Y Heart Problems Y Kidney or Bladder Problems Y Thyroid Problems N GI Problems Y Eating Disorder N Anemia N Art (IVF or FET) N Psychiatric Illness Y Ovarian Cancer N Diabetes N Pulmonary (TB, Asthma) N Hepatitis/Liver Disease N No Past Medical History N Eczema N Urinary Tract Infection N Abuse/Domestic Violence N Asthma N Trauma/Violence N Depression/ depression Y Heart Disease N Pre-Eclampsia N Hypertension Y Osteoporosis N Thrombophilias N Gynecological History Statement/Question Response Date of Last Mammogram 12/10/2023 Date of LMP 08/23/2016 On BCP's at Conception? N N STIs/STDs Yes HPV Vaccine N Current Control Method Menopause Age at First Child 20 If Post Menopausal, Age at Menopause 45 Sexually Active? N Date of DEXA bone scan Age of first menstrual cycle 12 Date of Last Pap Smear 07/08/2020 Sexual Problems? N LMP Approximate N Obstetrics History GPAL:G 6 P 3 0 3 3 Type Value Full Term 3 Induced 2 Spontaneous 1 Living 3 Total 6 Past Encounters Encounter ID Performer Location Encounter Start Date Encounter Closed Date Diagnosis/Indication Diagnosis SNOMED-CT Code Diagnosis ICD10 Code Diagnosis Note [id number] Shaunna Aguirre [facility] [address],[place] [address] 03/14/2020 09:47:43 03/14/2020 11:14:24 Skin tag in vagina 680580288 D28.1 K64.4 Patient is here to have two possible skin tags evaluated. Does not cause her pain, itching; but some irritation in skin tag near anal region; and one on inner upper right labia majora lip that she can feel when I wipe. She has neg urinary sx's, GI sx's, & vag d/c, itching, irritation . She is not currently SA. She denies Hx of STD's. She denies Hx of skin or other cancers We agreed to schedule a separate visit 30mins for removal of these areas of irritation for patient. Time spent in visit is a total of 15 mins with at least 50% of visit consisting of counseling and review of plan of care. [id number] Shaunna Aguirre [facility] [address],[place] [address] 03/15/2020 14:56:51 03/15/2020 15:50:49 Vaginal lesion 772725595 N94.89 L91.8 See procedure notes RTO x 1-2wks f/u. Post-op instructio ns & precaution s given. To call if any complicati ons. Go to ED/urgent care if after hours/Week end. Consent & procedure explained, signed, obtained. [id number] Shaunna Aguirre [facility] [address],[place] [address] 03/22/2020 14:13:57 03/22/2020 15:31:00 Lesion of vulva 506406258 N90.89 Patient is a 49yo white female here today for f/u to removal of vulvar lesion & rectal skin tag. We reviewed her surgical path report which reported that the lesion found on vulvar shave bx was LSIL/BISMARK-1 . She has neg Hx of HPV of any kind. +Hx HSV. She feels she has healed well from procedures performed EBONIE. She is unable to even tell where the shave bx was performed or rectal skin tag removed it has healed over so well. This is consistent with exam today. Area of concerns have healed over so well cannot detect where bx occurred. Because of this presentati on & surgical path result we discussed premaligna nt risks and need for f/u of this condition. If detectable change arises moving forward a need for referral to [facility] will be necessary. We agreed to f/u in 3mos for vulvar check & WWE with updated pap smear. She will perform monthly vulvar skin checks. Will call if any changes if occur in less 3mos. Counseled on HPV/condyl claudine effect related to this vulvar lesion(s). She verbalized understand ing. If any further input from MD will contact pt with POC changes. Time spent in visit is a total of 26 mins with at least 50% of visit consisting of counseling and review of plan of care. [id number] Shaunna Aguirre , [facility] [address],[place] [address] 07/08/2020 15:59:12 07/08/2020 16:27:14 Gynecologic examination [id number] Z01.419 Suggested Calcium with Vitamin D 1200-1500m g daily. Patient advised to get an annual flu shot in the fall and she could obtain at [facility] or [facility] take care clinic. Also to obtain TDap vaccinatio n if you have not had one in the last 10 years. Recommend yearly mammograms . Encouraged monthly self breast exams. Encourage safe sexual practices, to use condoms and limit partners if not already in a monogamous relationsh ip. Engage in daily exercise of low impact aerobic exercise 45-60 minutes 4-5 times weekly. Avoid tobacco and illicit drugs as well as using moderation with alcohol intake less than 1-2 8 oz beverages daily. This lifestyle behavior pattern will lead to less health conditions and longer life span. If BMI greater than 25 weight watchers or dietary consult advised. All questions have been answered. Patient appears to understand informatio n, but if you have any questions please call or respond to this email. Vulva skin clear no issues. Pap/HPV updated. Consider q3yr pap/hpv since not SA since 2013 and normal pap/hpv Hx. [id number] Shaunna Aguirre , [facility] [address],[place] [address] 08/25/2020 14:32:12 08/25/2020 15:20:51 Genital herpes simplex 93564673 A60.9 Exam unclear today. Has Hx of HSV Genital. A couple areas of vulva top bilateral labia majora look suspect for HSV like lesions. Another area right inner portion of labia majora raised but flesh colored; not painful but it is near the area we removed that came back for BISMARK-1 6mos ago. Two ??Skin tag or warts in area of anal opening present. We agreed to trial valtrex & mycolog ointment then RTO x 1wks to reassess; consider removal of rasised area & ??skin tags??. Time spent in visit is a total of 15 mins with at least 50% of visit consisting of counseling and review of plan of care. [id number] Shaunna Aguirre , [facility] [address],[place] [address] 09/08/2020 13:35:21 09/08/2020 14:16:57 Vaginal lesion [id number] N94.89 L91.8 See procedure notes RTO x 1-2wks f/u. Post-op instructio ns & precaution s given. To call if any complicati ons. Go to ED/urgent care if after hours/Week end. Consent & procedure explained, signed, obtained. ??Skin tag vs anogenital warts in area of anus removed. The other area of vulva noted on previous exam is no longer present. Will contact with results. 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 Additional area of concern has seemed to resolve. She is aware to do weekly vulvar checks & if any new findings aware to call for appt. [id number] Marisel Thomas [facility] [address] [address] 09/21/2020 09:23:46 09/22/2020 16:02:20 Genital warts [id number] A63.0 TCA used. Pt given aftercare instructio ns. Pt to continue monitoring genital region for any abnormalit ies. [id number] CARISSA Tang [facility] [address] [address] 11/08/2022 16:02:56 11/09/2022 16:06:11 Mammography abnormal 747399992 R92.8 Gynecologi c examination 74930339 Z01.419 Take Calcium with Vitamin D 12-1500mg daily. Do monthly self breast exams. It is advised to get annual flu shot in the fall and she could obtain at [facility] or [facility] care clinic. If you haven't received the Tdap vaccine in the last 10 years you should obtain one as well. Have mammogram yearly, bone density every 2-3 years and colonoscop y every 5-10 years depending on findings and history. Engage in daily exercise of low impact aerobic exercise 45-60 minutes 4-5 times weekly. Avoid tobacco and illicit drugs as well as using moderation with alcohol intake less than 1-2 8 oz beverages daily. This lifestyle behavior pattern will lead to less health conditions and longer life span. If BMI greater than 25 weight watchers or dietary consult advised. Questions have been answered. Patient appears to understand instructio ns, but if you have any further questions call or respond to this email WWEHx of BISMARK 1. Has been following with yearly vulvar checks. Vulvar exam WNL todayPostm enopausalN o hx of abnormal papsLast pap 2020 - normalPap done todaySTI testing declinedRe cent abnormal diagnostic mammogram through PCP, bi-rads 4, biopsy recommende d. She was referred to a breast specialist 1 month ago but has not heard anything to schedule. She would like to go to [facility]. Referral sentUTD on colonoscop y per patientRTC in 1 year or sooner if needed, discussed importance of yearly vulvar skin checks [id number] CARISSA Tang [place] [address] [address] 12/17/2023 09:36:51 12/17/2023 17:15:51 Gynecologic examination 25703301 Z01.419 WWEpostmen opausalpap updateddec lined STI screeningm ammogram UTD/sitema ncolonosco py UTD/PCProu dontrell labs UTD/PCP Take Calcium with Vitamin D daily. Do monthly self breast exams. It is advised to get annual flu shot in the fall and she could obtain at [facility] or [facility] care clinic. If you haven't received the Tdap vaccine in the last 10 years you should obtain one as well. Have mammogram yearly, bone density every 2-3 years and colonoscop y every 5-10 years depending on findings and history. Engage in daily exercise of low impact aerobic exercise 45-60 minutes 4-5 times weekly. Avoid tobacco and illicit drugs. This lifestyle behavior pattern will lead to less health conditions and longer life span. If BMI greater than 25 dietary consult advised. Questions have been answered. Patient appears to understand instructio ns, but if you have any further questions call or respond to this email Vaginitis [id number] N76.0 vulvar care guidelines discussedv aginitis panel sentrecomm ended vulvar check in 2 weeks with MD nieves h/o BISMARK 1 [id number] SHELDON MCKEON MD [place] [address] [address] 01/01/2024 09:55:52 01/01/2024 10:58:34 Vulvovaginitis 95206819 N76.0 - hx of BISMARK-1 excised 4 years ago- inflammati on improved with nystatin-t riamcinolo ne cream- no evidence of lesion on exam today- recommende d patient trial cream again if irritation recurs; if not improved with cream, should present for evaluation due to hx of BISMARK-1 Health Concerns Section Related Observation LastModified by Organization Detai ls LastModified Time None Recorded Concern Status LastModified by Organization Details LastModified Time None Recorded Advance Directives Directive None Recorded Payers Encounter Date Sequence Insurance Name Policy Number Policy Latif Covered Member ID Latif Member ID Guarantor Name 09/08/2020 1 [facility] (MEDICAID REPLACEMENT - HMO) [id number] Marii Aguilar [id number] Marii D Brewster 09/21/2020 1 [facility] (MEDICAID REPLACEMENT - HMO) [id number] Marii D Jeff [id number] Marii D Brewster 11/08/2022 1 [employer] [id number] Marii D Jeff [id number] Marii D Jeff 11/08/2022 2 [place] [employer] Marii D Brewster [id number] Marii D Jeff 12/17/2023 1 [employer]MR [id number] Mraii D Jeff [id number] Marii D Jeff 12/17/2023 2 [place] [facility] Marii D Jeff [id number] Marii D Brewster 01/01/2024 1 UMR [id number] Marii D Jeff [id number] Marii D Brewster 01/01/2024 2 [place] [facility] Marii D Jeff [id number] Marii D Brewster Notes Date Note Type Note Provider Name and Address Organization Details Recorded Time 09/08/2020 text/html Here for vulvar bx. Shaunna Aguirre, [facility]- [address], [place], [address], [facility] 09/08/2020 14:16:15 09/21/2020 text/html Pt has genital w arts near rectum. Would like removed if possible. Reviewed with Elly and she agrees that we can proceed with removal via tca. Marisel kang, [facility] 04/21/2021 10:37:59 11/08/2022 text/html Annual Tattooer Post-MenopausalRepor manohar bypatient.Menopausal Symptoms:no menopausal symptoms; normal vaginal lubrication Vaginal Bleeding:history of menopause having occurred; no history of post menopausal bleeding Urinary Symptoms:no hematuria; no incontinence; no nocturia; no urinary frequency Vulva:no genital lesion; no vulvar atrophy Vagina:normal vaginal discharge; no vaginal atrophy Breast:no breast lump; no nipple discharge; no breast pain Sexual Complaints:no sexual complaints Psychological Symptoms:no depression; no anxiety Preventive Measures:encourage regular mammograms starting age 40; encourage self breast examination; encourage regular exercise; mammogram performed within the past year; history of recent colonoscopy; cologuard 1 year ago, normal per patient CARISSA Tang [address], [place], [address], [facility] 11/09/2022 13:32:58 12/17/2023 text/html Annual Tattooer Post-MenopausalRepor manohar bypatient.Menopausal Symptoms:no menopausal symptoms; normal vaginal lubrication Vaginal Bleeding:history of menopause having occurred; no history of post menopausal bleeding Urinary Symptoms:no hematuria; no incontinence; no nocturia; no urinary frequency Vulva:no genital lesion; no vulvar atrophy; vulvar itching/irritation Vagina:normal vaginal discharge; no vaginal atrophy Breast:no breast lump; no nipple discharge; no breast pain Sexual Complaints:no sexual complaints Psychological Symptoms:no depression; no anxiety Preventive Measures:encourage regular mammograms starting age 40; encourage self breast examination; encourage regular exercise; encourage no tobacco useNotes:postmenopau sallast pap 11/2022 - normalHx of BISMARK 1 in 2019. Has been following with yearly vulvar checks.has noticed itching/irritation/d ryness on right upper vulva for the past 2 weeksno new partners, neg discharge/odors, neg pelvic pain, no postmenopausal bleeding following with [facility] breast specialist - mammogram last a few weeks ago, is repeating in 1 yr. Had benign left breast biopsy olonoscopy UTD/PCP CARISSA Tang [address], [place], [address], [facility] 12/17/2023 16:40:56 01/01/2024 text/html Patient presents for vulvar check. Had an episode of excoriated and erythematous skin at the superior labia majora, for which she was prescribed triamcinolone-nystat in cream. She has a history of BISMARK-1 excised 4 years ago with no recurrence. She reports improvement in the irritation since starting cream. SHELDON MCKEON MD [address], [place], [address], [facility] 01/01/2024 10:58:06 OBGyn Episode Ob Episode Information Episode Created Date Number of Fetuses Patient Bloodtype Patient rh Status Prepregnancy Weight lbs Domestic Partner Domestic Partner Phone Father Name Anode Builder Status 03/14/20 1 CLOSED Fetus Data First Name Last Name Admitted to NICU Weight (g) Sex Living Outcome Pediatric Complications Fetus ID Race Codes Race Delivery Type 4677.44 0704 M Full Term [id number] Vaginal Delivery Manny Calculation Initial Manny Date Initial Exam Date Initial Exam Provider Initial Ultrasound Date Last Menstrual Period Date Ultra Sound Weeks Gestation 0 Eighteen To Twenty Week Manny Update Ultra Sound Date Fundal Height At Umbil Quickening Date Ultra Sound Latest Weeks Gestation Final Manny Confirmed By Final Manny Confirmed Date Final Manny Date Ultra Sound Latest Days Gestation 0 0 Menstrual History Last Menstrual Date Menses Monthly On Bcp Conception Prior Menses Frequency Hcg Plus Date Menarche Onset Age Delivery Information Delivery Date Delivery Type Labor Anesthesia Weeks Gestation Incision Type Labor Labor Length Hrs Delivered By Post Complications Tubal Sterilization Discharge Date Comments 4 40 Discharge Information Feeding Method Contraceptive Method Maternal HG B and HCT Levels Ob Episode Information Episode Created Date Number of Fetuses Patient Bloodtype Patient rh Status Prepregnancy Weight lbs Domestic Partner Domestic Partner Phone Father Name Anode Builder Status 03/14/20 1 CLOSED Fetus Data First Name Last Name Admitted to NICU Weight (g) Sex Living Outcome Pediatric Complications Fetus ID Race Codes Race Delivery Type [phone] 6 F Full Term 1311 Vaginal Delivery Manny Calculation Initial Manny Date Initial Exam Date Initial Exam Provider Initial Ultrasound Date Last Menstrual Period Date Ultra Sound Weeks Gestation 0 Eighteen To Twenty Week Manny Update Ultra Sound Date Fundal Height At Umbil Quickening Date Ultra Sound Latest Weeks Gestation Final Manny Confirmed By Final Manny Confirmed Date Final Manny Date Ultra Sound Latest Days Gestation 0 0 Menstrual History Last Menstrual Date Menses Monthly On Bcp Conception Prior Menses Frequency Hcg Plus Date Menarche Onset Age Delivery Information Delivery Date Delivery Type Labor Anesthesia Weeks Gestation Incision Type Labor Labor Length Hrs Delivered By Post Complications Tubal Sterilization Discharge Date Comments 2 40 Discharge Information Feeding Method Contraceptive Method Maternal HG B and HCT Levels Ob Episode Information Episode Created Date Number of Fetuses Patient Bloodtype Patient rh Status Prepregnancy Weight lbs Domestic Partner Domestic Partner Phone Father Name Anode Builder Status 03/14/20 1 CLOSED Fetus Data First Name Last Name Admitted to NICU Weight (g) Sex Living Outcome Pediatric Complications Fetus ID Race Codes Race Delivery Type [phone] 4 F Full Term 1312 Vaginal Delivery Manny Calculation Initial Manny Date Initial Exam Date Initial Exam Provider Initial Ultrasound Date Last Menstrual Period Date Ultra Sound Weeks Gestation 0 Eighteen To Twenty Week Manny Update Ultra Sound Date Fundal Height At Umbil Quickening Date Ultra Sound Latest Weeks Gestation Final Manny Confirmed By Final Manny Confirmed Date Final Manny Date Ultra Sound Latest Days Gestation 0 0 Menstrual History Last Menstrual Date Menses Monthly On Bcp Conception Prior Menses Frequency Hcg Plus Date Menarche Onset Age Delivery Information Delivery Date Delivery Type Labor Anesthesia Weeks Gestation Incision Type Labor Labor Length Hrs Delivered By Post Complications Tubal Sterilization Discharge Date Comments 1 40 Discharge Information Feeding Method Contraceptive Method Maternal HG B and HCT Levels Ob Episode Information Episode Created Date Number of Fetuses Patient Bloodtype Patient rh Status Prepregnancy Weight lbs Domestic Partner Domestic Partner Phone Father Name Anode Builder Status 09/13/20 1 CLOSED Fetus Data First Name Last Name Admitted to NICU Weight (g) Sex Living Outcome Pediatric Complications Fetus ID Race Codes Race Delivery Type , Induced 5992 Manny Calculation Initial Manny Date Initial Exam Date Initial Exam Provider Initial Ultrasound Date Last Menstrual Period Date Ultra Sound Weeks Gestation 0 Eighteen To Twenty Week Manny Update Ultra Sound Date Fundal Height At Umbil Quickening Date Ultra Sound Latest Weeks Gestation Final Manny Confirmed By Final Manny Confirmed Date Final Manny Date Ultra Sound Latest Days Gestation 0 0 Menstrual History Last Menstrual Date Menses Monthly On Bcp Conception Prior Menses Frequency Hcg Plus Date Menarche Onset Age Delivery Information Delivery Date Delivery Type Labor Anesthesia Weeks Gestation Incision Type Labor Labor Length Hrs Delivered By Post Complications Tubal Sterilization Discharge Date Comments 1996 induced Discharge Information Feeding Method Contraceptive Method Maternal HG B and HCT Levels Ob Episode Information Episode Created Date Number of Fetuses Patient Bloodtype Patient rh Status Prepregnancy Weight lbs Domestic Partner Domestic Partner Phone Father Name Anode Builder Status 09/13/20 1 CLOSED Fetus Data First Name Last Name Admitted to NICU Weight (g) Sex Living Outcome Pediatric Complications Fetus ID Race Codes Race Delivery Type , Induced 59 Manny Calculation Initial Manny Date Initial Exam Date Initial Exam Provider Initial Ultrasound Date Last Menstrual Period Date Ultra Sound Weeks Gestation 0 Eighteen To Twenty Week Manny Update Ultra Sound Date Fundal Height At Umbil Quickening Date Ultra Sound Latest Weeks Gestation Final Manny Confirmed By Final Manny Confirmed Date Final Manny Date Ultra Sound Latest Days Gestation 0 0 Menstrual History Last Menstrual Date Menses Monthly On Bcp Conception Prior Menses Frequency Hcg Plus Date Menarche Onset Age Delivery Information Delivery Date Delivery Type Labor Anesthesia Weeks Gestation Incision Type Labor Labor Length Hrs Delivered By Post Complications Tubal Sterilization Discharge Date Comments 9 1998 induced Discharge Information Feeding Method Contraceptive Method Maternal HG B and HCT Levels Ob Episode Information Episode Created Date Number of Fetuses Patient Bloodtype Patient rh Status Prepregnancy Weight lbs Domestic Partner Domestic Partner Phone Father Name Anode Builder Status 09/13/20 20 1 CLOSED Fetus Data First Name Last Name Admitted to NICU Weight (g) Sex Living Outcome Pediatric Complications Fetus ID Race Codes Race Delivery Type , Spontane ous 5991 Manny Calculation Initial Manny Date Initial Exam Date Initial Exam Provider Initial Ultrasound Date Last Menstrual Period Date Ultra Sound Weeks Gestation 0 Eighteen To Twenty Week Manny Update Ultra Sound Date Fundal Height At Umbil Quickening Date Ultra Sound Latest Weeks Gestation Final Manny Confirmed By Final Manny Confirmed Date Final Manny Date Ultra Sound Latest Days Gestation 0 0 Menstrual History Last Menstrual Date Menses Monthly On Bcp Conception Prior Menses Frequency Hcg Plus Date Menarche Onset Age Delivery Information Delivery Date Delivery Type Labor Anesthesia Weeks Gestation Incision Type Labor Labor Length Hrs Delivered By Post Complications Tubal Sterilization Discharge Date Comments 0 1989 miscarria ge Discharge Information Feeding Method Contraceptive Method Maternal HG B and HCT Levels
--- OUTSIDE RECORDS SUMMARY | 2025-01-08 09:49 | XMS_ITS | Encounter Summary ---
Author Organization [facility] Healthcare Address [address] [place] [address] Care Team Providers Care Investment Accounting Clerk Name Role Phone Unavailable Primary Care Provider Unavailabl e Reason for Visit * Diagnostic Imaging (Routine) - Closed Specialty Diagnoses / Procedures Referred By Regine aec Referred To Contact Procedures Breast Imaging Screening Outside Reference Amparo Borges NP Phone: tel: fax: Referral ID Status Reason Start Date Expiration Date Visits Re quested Visits Authorized [id number] Closed 11/22/2022 12/22/2023 1 1 Encounter Details Date Type Department Care Team (Late st Contact Info) Description 03/16/2011 Hospital Encounter [facility] [address] [place] [id number] Social History Tobacco Use Types Packs/Day Years Used Date Smoking Tobacco: Former Cigarettes Q uit: 2021 Smokeless Tobacco: Never Personal Safety Answer Date Recorded Getting School Help Needed Not on file 11/12 Comments Unknown Sex and Gender Information Value Date Recorded Sex Assigned at Not on file Legal Sex Female 4:16 PM MANAGER ECONOMIC Gender Identity Not on file Sexual Orientation Not on file documented as of this encounter Plan of Treatment Not on file documented as of this encounter Procedures Procedure Name Priority Date/Time Associated Diagnosis Comments BREAST IMAGING MG SCREENING OUTSIDE REFERENCE Schedule Routine, Read Routine (OP Routine) 03/16/2011 12:00 AM CDT documented in this encounter Results * Breast Imaging Screening Outside Reference (03/16/2011 12:00 AM CDT) Impressions [email or web address] - 11/22/2022 10:17 AM MANAGER ECONOMIC These images are for Reference purposes only and have not been reviewed by [facility] Radiology. There will be no report generated by a [facility] Radiologist. Narrative [email or web address] - 11/22/2022 10:17 AM MANAGER ECONOMIC EXAMINATION: Images For Reference Purposes Only us Amparo Borges NP IMG MAMMO PROCEDURES Fin al Result [email or web address] documented in this encounter Visit Diagnoses Not on filedocumented in this encounter
--- OUTSIDE RECORDS SUMMARY | 2025-01-08 09:49 | XMS_ITS | Encounter Summary ---
Author Organization [facility] Healthcare Address [address] [place] [address] Care Team Providers Care Bulk Sealer Name Role Phone Unavailable Primary Care Provider Unavailabl e Reason for Visit * Diagnostic Imaging (Routine) - Closed Specialty Diagnoses / Procedures Referred By Regine ace Referred To Contact Procedures Breast Imaging Screening Outside Reference mAparo Borges NP Phone: tel: fax: Referral ID Status Reason Start Date Expiration Date Visits Re quested Visits Authorized [id number] Closed 11/22/2022 12/22/2023 1 1 Encounter Details Date Type Department Care Team (Late st Contact Info) Description 09/08/2020 Hospital Encounter [facility] [address] [place] [address] Social History Tobacco Use Types Packs/Day Years Used Date Smoking Tobacco: Former Cigarettes Q uit: 2021 Smokeless Tobacco: Never Personal Safety Answer Date Recorded Getting School Help Needed Not on file 11/12 Comments Unknown Sex and Gender Information Value Date Recorded Sex Assigned at Not on file Legal Sex Female 4:16 PM LACE BURN OUT TENDER Gender Identity Not on file Sexual Orientation Not on file documented as of this encounter Plan of Treatment Not on file documented as of this encounter Procedures Procedure Name Priority Date/Time Associated Diagnosis Comments BREAST IMAGING MG SCREENING OUTSIDE REFERENCE Schedule Routine, Read Routine (OP Routine) 09/08/2020 12:00 AM LACE BURN OUT TENDER documented in this encounter Results * Breast Imaging Screening Outside Reference (09/08/2020 12:00 AM LACE BURN OUT TENDER) Impressions [email or web address] - 11/22/2022 10:16 AM LACE BURN OUT TENDER These images are for Reference purposes only and have not been reviewed by [facility] Radiology. There will be no report generated by a [facility] Radiologist. Narrative [email or web address] - 11/22/2022 10:16 AM LACE BURN OUT TENDER EXAMINATION: Images For Reference Purposes Only us Amparo Borges NP IMG MAMMO PROCEDURES Fin al Result [email or web address] documented in this encounter Visit Diagnoses Not on filedocumented in this encounter
--- OUTSIDE RECORDS SUMMARY | 2025-01-08 09:49 | XMS_ITS | Clinical Summary ---
Author Organization [facility] Address [address] [place] [address] Care Team Providers Care Acquisitions Librarian Name Role Phone Hoda Cabrera NP Unavailable [phone] Pamela Grijalva Primary Care Provider Allergies Active Allergy Reactions Criticality Noted Date [...] Noted Date Diagnosed Date Abnormal mammogram 12/04/2022 Encounters Date Type Department Care Team Description 11/24/[address] [facility] Surgery [facility] Floor [address] [place] [address] CMA from Last 3 Months Surgical History Surgery Date Site/Laterality Comments BREAST BIOPSY 12/27/2022 Left Family History Medical History Relation Name Comments No Known Problems Father Lung cancer Maternal Grandfather Bone cancer Maternal Grandmother No Known Problems Mother Ovarian cancer Mother's Sister Relation Name Status Comments Father Maternal Grandfather Maternal Grandmother Mother Mother's Sister Social History Tobacco Use Types Packs/Day Years Used Date Smoking Tobacco: Former Cigarettes Q uit: 2021 Smokeless Tobacco: Never Tobacco Cessation:Counseling Given: Not Answered Personal Safety Answer Date Recorded Getting School Help Needed Not on file 11/12 Comments Unknown Sex and Gender Information Value Date Recorded Sex Assigned at Not on file Legal Sex Female 4:16 PM CREATIVE SERVICES DESIGNER Gender Identity Not on file Sexual Orientation Not on file Obstetrics History Last Filed Vital Signs Vital Sign Reading Time Taken Comments Blood Pressure - - Pulse - - Temperature - - Respiratory Rate - - Oxygen Saturation - - Inhaled Oxygen Concentration - - Weight 95.3 kg (210 lb) 12/10/2023 2:26 PM CREATIVE SERVICES DESIGNER Height 157.5 cm (5' 2 ) 12/10/2023 2:26 PM CREATIVE SERVICES DESIGNER Body Mass Index 38.41 12/10/2023 2:26 PM CREATIVE SERVICES DESIGNER Plan of Treatment Health Maintenance Due Date Last Done Comments Cervical Cancer Screening 1970 Colon Cancer Screening-Colonoscopy 1970 Depression Screening 1970 Hepatitis C Screening 1970 DTaP/Tdap/Td Vaccine (1 - Tdap) 1981 Hepatitis B Screening 1988 Regular Well Visit/Exam 18-64 1988 Zoster Vaccine (1 of 2) 2020 Covid-19 Vaccine (4 - 2023-2 5 season) 2024 08/17/2022, 11/29/2020, 11/01/2020 Influenza Vaccine (#1) 2024 08/25/2019 Breast Cancer Screening-Mammogram 12/10/2024 12/10/2023, 07/08/2019 Pneumococcal vaccine <65 Aged Out No longer eligible based on patient's age to complete this topic Medical Devices Implanted Type Area Sheet Mill Supervisor Device Identifier Shelf Expiration Date Model / Serial / Lot Bard Peripheral Vascular Ultraclip Bard 17ga 10cm 2 Trigger Permanent Ultrasound [id number] - [id number] Implanted:Qty: 1 on 12/27/2022 at [facility] Left: Breast Bard Peripheral Vascular [id number] / / Procedures Procedure Name Priority Date/Time Associated Diagnosis Comments DIAGNOSTIC MAMMOGRAM BILATERAL W ROBIN Schedule Routine, Read Routine (OP Routine) 12/10/2023 4:09 PM CREATIVE SERVICES DESIGNER Abnormal mammogram from Last 3 Months or Most Recently Relevant to Health Maintenance Results * Diagnostic Mammogram Bilateral W Robin (12/10/2023 4:09 PM CREATIVE SERVICES DESIGNER) Anatomical Region Laterality Modality Breast Bilateral Mammography 12/10/2023 4:10 PM CREATIVE SERVICES DESIGNER Impressions 12/10/2023 4:42 PM CREATIVE SERVICES DESIGNER 1. No suspicious findings to suggest malignancy [...] Zully Billingsley M.D. Narrative 12/10/2023 4:42 PM CREATIVE SERVICES DESIGNER EXAMINATION: BILATERAL DIGITAL DIAGNOSTIC MAMMOGRAM INCLUDING CAD [...] Most Recently Relevant to Health Maintenance Insurance [facility] [place] [address] IDPA [facility] IDPA IDPA Care Teams Acquisitions Librarian Relationship Specialty Start Date End Date Pamela Grijalva PA [address] [place] [id number] PCP - General Physician Senior Telecommunications Engineer 11/15/22 Hoda Cabrera NP Nurse Practitioner Obstetrics and Gynecology 11/14/22
[2025-01-08 10:00] VITALS: BP 108/80; PULSE 78; RESP 18; O2SAT 98
[2025-01-08 10:10] LABS: Influenza A QL RT-PCR Negative (Negative); Influenza B QL RT-PCR Negative (Negative); RSV RNA, RT-PCR Negative (Negative); SARS-CoV-2 RNA PCR Negative (Negative)
[2025-01-08 10:24] VITALS: BP 111/85; PULSE 76; RESP 17; TEMP 36.4; O2SAT 98
--- OUTSIDE RECORDS SUMMARY | 2025-01-08 10:43 | XMS_ITS | Encounter Summary ---
Author Organization [facility] Healthcare Address [address] [place] [address] Care Team Providers Care Saw Man Name Role Phone Unavailable Primary Care Provider Unavailabl e Reason for Visit * Diagnostic Imaging (Routine) - Closed Specialty Diagnoses / Procedures Referred By Regine ace Referred To Contact Procedures Breast Imaging Screening Outside Reference Amparo Borges NP Phone: tel: fax: Referral ID Status Reason Start Date Expiration Date Visits Re quested Visits Authorized [id number] Closed 11/22/2022 12/22/2023 1 1 Encounter Details Date Type Department Care Team (Late st Contact Info) Description 11/07/2017 Hospital Encounter [facility] [address] [place] [id number] Social History Tobacco Use Types Packs/Day Years Used Date Smoking Tobacco: Former Cigarettes Q uit: 2021 Smokeless Tobacco: Never Personal Safety Answer Date Recorded Getting School Help Needed Not on file 11/12 Comments Unknown Sex and Gender Information Value Date Recorded Sex Assigned at Not on file Legal Sex Female 4:16 PM CANNED FOOD RECONDITIONING INSPECTOR Gender Identity Not on file Sexual Orientation Not on file documented as of this encounter Plan of Treatment Not on file documented as of this encounter Procedures Procedure Name Priority Date/Time Associated Diagnosis Comments BREAST IMAGING MG SCREENING OUTSIDE REFERENCE Schedule Routine, Read Routine (OP Routine) 11/07/2017 12:00 AM CANNED FOOD RECONDITIONING INSPECTOR documented in this encounter Results * Breast Imaging Screening Outside Reference (11/07/2017 12:00 AM CANNED FOOD RECONDITIONING INSPECTOR) Impressions [email or web address] - 11/22/2022 10:16 AM CANNED FOOD RECONDITIONING INSPECTOR These images are for Reference purposes only and have not been reviewed by [facility] Radiology. There will be no report generated by a [facility] Radiologist. Narrative [facility] - 11/22/2022 10:16 AM CANNED FOOD RECONDITIONING INSPECTOR EXAMINATION: Images For Reference Purposes Only us Amparo Borges NP IMG MAMMO PROCEDURES Fin al Result [email or web address] documented in this encounter Visit Diagnoses Not on filedocumented in this encounter
--- OUTSIDE RECORDS SUMMARY | 2025-01-08 10:43 | XMS_ITS | Encounter Summary ---
Author Organization [facility] Healthcare Address [address] [place] [address] Care Team Providers Care [place] Supervisor Name Role Phone Unavailable Primary Care Provider Unavailabl e Reason for Visit * Diagnostic Imaging (Routine) - Closed Specialty Diagnoses / Procedures Referred By Regine ace Referred To Contact Procedures Breast Imaging Screening Outside Reference Amparo Borges NP Phone: tel: fax: Referral ID Status Reason Start Date Expiration Date Visits Re quested Visits Authorized [id number] Closed 11/22/2022 12/22/2023 1 1 Encounter Details Date Type Department Care Team (Late st Contact Info) Description 09/08/2020 Hospital Encounter [facility] [address] [place] [id number] Social History Tobacco Use Types Packs/Day Years Used Date Smoking Tobacco: Former Cigarettes Q uit: 2021 Smokeless Tobacco: Never Personal Safety Answer Date Recorded Getting School Help Needed Not on file 11/12 Comments Unknown Sex and Gender Information Value Date Recorded Sex Assigned at Not on file Legal Sex Female 4:16 PM FIELD OPERATIONS FARM MANAGER Gender Identity Not on file Sexual Orientation Not on file documented as of this encounter Plan of Treatment Not on file documented as of this encounter Procedures Procedure Name Priority Date/Time Associated Diagnosis Comments BREAST IMAGING MG SCREENING OUTSIDE REFERENCE Schedule Routine, Read Routine (OP Routine) 09/08/2020 12:00 AM FIELD OPERATIONS FARM MANAGER documented in this encounter Results * Breast Imaging Screening Outside Reference (09/08/2020 12:00 AM FIELD OPERATIONS FARM MANAGER) Impressions [facility] - 11/22/2022 10:16 AM FIELD OPERATIONS FARM MANAGER These images are for Reference purposes only and have not been reviewed by [facility] Radiology. There will be no report generated by a [facility] Radiologist. Narrative [email or web address] - 11/22/2022 10:16 AM FIELD OPERATIONS FARM MANAGER EXAMINATION: Images For Reference Purposes Only us Amparo Borges NP IMG MAMMO PROCEDURES Fin al Result [email or web address] documented in this encounter Visit Diagnoses Not on filedocumented in this encounter
--- OUTSIDE RECORDS SUMMARY | 2025-01-08 10:43 | XMS_ITS | Encounter Summary ---
Author Organization [facility] Healthcare Address [address] [place] [address] Care Team Providers Care Authorization Manager Name Role Phone Unavailable Primary Care Provider Unavailabl e Reason for Visit * Diagnostic Imaging (Routine) - Closed Specialty Diagnoses / Procedures Referred By Regine ace Referred To Contact Procedures Breast Imaging Screening Outside Reference Amparo Borges NP Phone: tel: fax: Referral ID Status Reason Start Date Expiration Date Visits Re quested Visits Authorized [id number] Closed 11/22/2022 12/22/2023 1 1 Encounter Details Date Type Department Care Team (Late st Contact Info) Description 03/16/2011 Hospital Encounter [facility] [address] [place] [id number] Social History Tobacco Use Types Packs/Day Years Used Date Smoking Tobacco: Former Cigarettes Q uit: 2021 Smokeless Tobacco: Never Personal Safety Answer Date Recorded Getting School Help Needed Not on file 11/12 Comments Unknown Sex and Gender Information Value Date Recorded Sex Assigned at Not on file Legal Sex Female 4:16 PM GLOVE TURNER AND FORMER AUTOMATIC Gender Identity Not on file Sexual Orientation [...] CDT) Impressions [facility] - 11/22/2022 10:17 AM GLOVE TURNER AND FORMER AUTOMATIC These images are for Reference purposes only and have not been reviewed by [facility] Radiology. There will be no report generated by a [facility] Radiologist. Narrative [facility] - 11/22/2022 10:17 AM GLOVE TURNER AND FORMER AUTOMATIC EXAMINATION: Images For Reference Purposes Only us Amparo Borges NP IMG MAMMO PROCEDURES Fin al Result [facility] documented in this encounter Visit Diagnoses Not on filedocumented in this encounter
--- OUTSIDE RECORDS SUMMARY | 2025-01-08 10:43 | XMS_ITS | Clinical Summary ---
Author Organization [facility] Address [address] [place] [address] Care Team Providers Care [employer]dl [employer] Flatbed Driver Name Role Phone Unavailable Primary Care Provider Unavailabl e Allergies Active Allergy Reactions Criticality Noted Date Comments Clarithromycin Itching 01/11/2020 Cephalexin Itching 01/11/2020 Social History Tobacco Use Types Packs/Day Years Used Date Smoking Tobacco: Never Assessed Comments Unknown Sex and Gender Information Value Date Recorded Sex Assigned at Not on file Legal Sex Female 12:23 PM MANAGER BODY Gender Identity Not on file Sexual Orientation [...]
--- OUTSIDE RECORDS SUMMARY | 2025-01-08 10:43 | XMS_ITS | Clinical Summary ---
Author Organization [facility] Address [address] [place] [address] Care Team Providers Care Tanning Consultant Name Role Phone Hoda Cabrera NP Unavailable [phone] Pamela Grijalva Primary Care Provider [phone] Allergies Active Allergy Reactions Criticality Noted Date [...] Type Department Care Team Description 11/24/2024 Telephone [facility] Surgery [facility] Floor [address] [place] [address] CMA from Last [...] on file Legal Sex Female 4:16 PM PRINTED CIRCUIT BOARD DESIGNER Gender Identity Not on file Sexual Orientation Not on file Obstetrics History Last Filed Vital Signs Vital Sign Reading Time Taken Comments Blood Pressure - - Pulse - - Temperature - - Respiratory Rate - - Oxygen Saturation - - Inhaled Oxygen Concentration - - Weight 95.3 kg (210 lb) 12/10/2023 2:26 PM PRINTED CIRCUIT BOARD DESIGNER Height 157.5 cm (5' 2 ) 12/10/2023 2:26 PM PRINTED CIRCUIT BOARD DESIGNER Body Mass Index 38.41 12/10/2023 2:26 PM PRINTED CIRCUIT BOARD DESIGNER Plan of Treatment Health Maintenance Due [...] this topic Medical Devices Implanted Type Area Supervisor Opening And Picking Device Identifier Shelf Expiration Date Model / Serial / Lot Bard Peripheral Vascular Ultraclip Bard 17ga 10cm 2 Trigger Permanent Ultrasound [id number] - [id number] Implanted:Qty: 1 on 12/27/2022 at [facility] Left: Breast Bard Peripheral Vascular [id number] / / Procedures Procedure Name Priority Date/Time Associated Diagnosis Comments DIAGNOSTIC MAMMOGRAM BILATERAL W ROBIN Schedule Routine, Read Routine (OP Routine) 12/10/2023 4:09 PM PRINTED CIRCUIT BOARD DESIGNER Abnormal mammogram from Last 3 Months or Most Recently Relevant to Health Maintenance Results * Diagnostic Mammogram Bilateral W Robin (12/10/2023 4:09 PM PRINTED CIRCUIT BOARD DESIGNER) Anatomical Region Laterality Modality Breast Bilateral Mammography 12/10/2023 4:10 PM PRINTED CIRCUIT BOARD DESIGNER Impressions 12/10/2023 4:42 PM PRINTED CIRCUIT BOARD DESIGNER 1. No suspicious findings to suggest [...] Zully Billingsley M.D. Narrative 12/10/2023 4:42 PM PRINTED CIRCUIT BOARD DESIGNER EXAMINATION: BILATERAL DIGITAL DIAGNOSTIC MAMMOGRAM INCLUDING [...] Most Recently Relevant to Health Maintenance Insurance [facility] IDPA R [facility] IDPA IDPA Care Teams Tanning Consultant Relationship Specialty Start Date End Date Pamela Grijalva PA [address] [place] [id number] PCP - General Physician Numberer And Wirer 11/15/22 Hoda Cabrera NP Nurse Practitioner Obstetrics and Gynecology 11/14/22
--- OUTSIDE RECORDS SUMMARY | 2025-01-08 10:43 | XMS_ITS | Clinical Summary ---
Author Organization [facility] Address [address] [place] [address] Phone Care Team Providers Care Validation Architect Name Role Phone Unavailable Primary Care Provider [...] Comments Blood Pressure 116/68 12/14/2018 1:28 PM SENIOR ABAP DEVELOPER Pulse 78 12/14/2018 1:28 PM SENIOR ABAP DEVELOPER Temperature 36.8 C (98.2 F) 12/14/2018 11:35 AM SENIOR ABAP DEVELOPER Respiratory Rate 18 12/14/2018 1:28 PM SENIOR ABAP DEVELOPER Oxygen Saturation 95% 12/14/2018 1:28 PM SENIOR ABAP DEVELOPER Inhaled Oxygen Concentration - - Weight 86.2 kg (190 lb) 12/14/2018 11:35 AM SENIOR ABAP DEVELOPER Height 154.9 cm (5' 1 ) 12/14/2018 11:35 AM SENIOR ABAP DEVELOPER Body Mass Index 35.9 12/14/2018 11:35 AM SENIOR ABAP DEVELOPER Plan of Treatment Health Maintenance Due Date [...] made to exams dated: 11/07/2017 and 03/16/2011 [facility]. BREAST TISSUE:There are scattered fibroglandular densities [...] exam. Electronically signed by: Yazmin kang/radha:07/15/2019 11:32:52 Insole Rasper: Kathy Redmond)(M), [facility] letter sent: Normal Exam Reading location: [facility] BI-RADS: 1 Negative Procedure Note Yazmin Copeland [...] made to exams dated: 11/07/2017 and 03/16/2011 [facility]. BREAST TISSUE:There are scattered fibroglandular densities [...] exam. Electronically signed by: Yazmin kang/radha:07/15/2019 11:32:52 Insole Rasper: Kathy West(Victorino)(M), [facility] letter sent: Normal Exam Reading location: [facility] BI-RADS: 1 Negative us Tricia Flores MD IMG MAMMO ORDERABLES Final Result from Last 3 Months or Most Recently Relevant to Health Maintenance
--- OUTSIDE RECORDS SUMMARY | 2025-01-08 10:43 | XMS_ITS | Referral Summary ---
Author Organization [facility] Address [address] [place] [address] Care Team Providers Care Pneumatic System Conveyor Operator Name Role Phone Hoda Cabrera ANIMAL STUNNER Unavailable [phone] Pamela Grijalva Primary Care Provider [phone] Encounters Date Type Department Care Team Description 11/24/2024 Telephone [facility] Surgery [address] 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 [employer] Gender Identity Not on file Sexual Orientation Not on file Last Filed Vital Signs Vital Sign Reading Time Taken Comments Blood Pressure - - Pulse - - Temperature - - Respiratory Rate - - Oxygen Saturation - - Inhaled Oxygen Concentration - - Weight 95.3 kg (210 lb) 12/10/2023 2:26 PM SALES REPRESENTATIVE [employer] Height 157.5 cm (5' 2 ) 12/10/2023 2:26 PM SALES REPRESENTATIVE [employer] Body Mass Index 38.41 12/10/2023 2:26 PM SALES REPRESENTATIVE [employer] Plan of Treatment Not on file Medical Devices Implanted Type Area Cook'S Assistant Device Identifier Shelf Expiration Date Model / Serial / Lot Bard Peripheral Vascular Ultraclip Bard 17ga 10cm 2 Trigger Permanent Ultrasound [id number] - [id number] Implanted:Qty: 1 on 12/27/2022 at [facility] Left: Breast Bard Peripheral Vascular [id number] / / Procedures Procedure Name Priority Date/Time Associated Diagnosis Comments DIAGNOSTIC MAMMOGRAM BILATERAL W ROBIN Schedule Routine, Read Routine (OP Routine) 12/10/2023 4:09 PM SALES REPRESENTATIVE [employer] Abnormal mammogram from Last 3 Months or Most Recently Relevant to Health Maintenance Results * Diagnostic Mammogram Bilateral W Robin (12/10/2023 4:09 PM SALES REPRESENTATIVE [employer]) Anatomical Region Laterality Modality Breast Bilateral Mammography 12/10/2023 4:10 PM SALES REPRESENTATIVE [employer] Impressions 12/10/2023 4:42 PM SALES REPRESENTATIVE [employer] 1. No suspicious findings to suggest malignancy [...] Zully Billingsley M.D. Narrative 12/10/2023 4:42 PM SALES REPRESENTATIVE [employer] EXAMINATION: BILATERAL DIGITAL DIAGNOSTIC MAMMOGRAM INCLUDING CAD [...] months with bilateral diagnostic mammogram. Dictated by: eDsmond Reddy MD, PHD The radiology attending physician has personally reviewed this study, and had reviewed and/or edited this written report and agrees with it. Electronically signed by: Zully Billingsley M.D. Amparo Borges NP IMG MAMMO PROCEDURES Fin al Result from Last 3 Months or Most Recently Relevant to Health Maintenance Insurance [facility] [employer] IDPA Care Teams Pneumatic System Conveyor Operator Relationship Specialty Start Date End Date Pamela Grijalva PA [address] [place] [address] PCP - General Physician Fork Repairer 11/15/22 Hoda Cabrera NP Nurse Practitioner Obstetrics and Gynecology 11/14/22
== END 2025-01-08 10:24 | disposition home or self-care (01) ==
PROVIDERS: Emergency Provider Emergency Medicine; PCP Physician Assistant
DX: J06.9 Acute upper respiratory infection, unspecified (principal); I10 Essential (primary) hypertension; E78.5 Hyperlipidemia, unspecified; F17.210 Nicotine dependence, cigarettes, uncomplicated; Z20.822 Contact with and (suspected) exposure to COVID-19
CPT/HCPCS: 71046; 87637; 99283; A9270